=== PATIENT | female | born 1935 | race Caucasian/White ===

== ENCOUNTER 2016-10-06 15:54 | Inpatient (IN) ==
[2016-10-06 16:29] LABS: BASO% 0.2 % (0.0-0.8); EOS# 0.01 X1000 (0.0-0.7); EOS% 0.1 % (0.0-10.0); HEMATOCRIT 32.3 % (37.0-47.0); HEMOGLOBIN 11.1 g/dL (12.0-16.0); IMM GRAN# 0.23 X1000 (0.0-0.04); LYMPH# 1.39 X1000 (1.2-3.4); LYMPH% 12.2 % (20.5-51.1); MANUAL DIFF NEEDED? NO; MCH 30.2 PG (27-31); MCHC 34.4 g/dL (33-37); MONO# 2.57 X1000 (0.11-0.59); MONO% 22.5 % (1.7-9.3); MPV 9.5 FL (7.4-10.4); PLT 320 X1000 (130-400); RBC 3.67 XMIL (4.2-5.4)
[2016-10-06 16:43] LABS: CALCIUM 8.6 mg/dL (8.8-10.2); POTASSIUM 3.5 mmol/L (3.5-5.1); TOTAL BILIRUBIN 0.44 mg/dL (0.20-1.00)
[2016-10-06] MEDS ORDERED: ZOFRAN IV ONE (17:39)
[2016-10-06] MEDS ORDERED: NS 1,000 ML IV ONE (17:39)
--- NOTE | 2016-10-06 17:59 | PROVIDER DOCUMENTATION ---
This chart was entered by Jewels Freire Scribe, acting as scribe for Ramana Tucker MD. HPI-Abdominal Pain/GI Problem <Josias Almaraz - Last Filed: 10/06/16 19:18> - General Source: patient - History of Present Illness-ABD Nature of Presenting Problems: Pt is a 81 yof who came to the ED with a cc of abdominal pain. Pt reports she has been having N/V/D since . Pt reports he abdomen is bloated. Denies fever, chills, and chest pain. Abdominal Pain Onset Location: reports: generalized abdomen Pain Radiation: reports: no radiation Quality of Pain: reports: sharp Onset/Duration: reports: 5 days ago Timing: reports: still present Activities at Onset: reports: none Modifying Factors: improves with: nothing Associated Symptoms: reports: nausea, vomiting Last BM: unsure Dark Stools Present?: reports: none noticed Rectal Bleeding: reports: none Rectal Pain: reports: none Bruising or Bleeding Gums?: No Similar Symptoms Previously?: No Recently seen or treated by another doctor?: No <Ramana Tucker - Last Filed: 10/07/16 10:40> - General Chief Complaint: N/V/D Stated Complaint: POSS DEHYDRATION Time Seen by Provider: 10/06/16 16:27 Allergies/Adverse Reactions: Patient Allergies Allergy/AdvReac Type Severity Reaction Status Date / Time No Known Allergies Allergy Verified 10/06/16 18:02 Home Medications: Home Medication List Medication Instructions Recorded Confirmed Last Taken Type Atenolol [Tenormin] 50 mg PO BID 07/19/12 10/06/16 07/19/12 07:00 History Clonidine 0.1 mg PO BID 07/19/12 10/06/16 10/06/16 06:00 History Hydralazine [Apresoline] 20 mg PO TID 07/19/12 10/06/16 10/06/16 13:00 History Levothyroxine Sodium [Levoxyl] 50 mcg PO DAILY 07/19/12 10/06/16 10/06/16 06:00 History Amlodipine [Norvasc] 5 mg PO DAILY 10/06/16 10/06/16 Unknown History Aspirin [Aspir-Low] 81 mg PO DAILY 10/06/16 10/06/16 10/06/16 06:00 History Atenolol 50 mg PO BID 10/06/16 10/06/16 Unknown History Furosemide [Lasix] 20 mg PO DAILY 10/06/16 10/06/16 10/06/16 06:00 History LISINOpril [Prinivil] 20 mg PO BID 10/06/16 10/06/16 Unknown History Review of Systems - Adult - REVIEW OF SYSTEMS - ADULT Gastrointestinal: reports: diarrhea, nausea, vomiting <Josias Almaraz - Last Filed: 10/06/16 19:18> - REVIEW OF SYSTEMS - ADULT Constitutional: denies: chills, fever Eyes: reports: no symptoms reported Ears, Nose, Mouth & Throat: reports: no symptoms reported Cardiovascular: reports: no symptoms reported Respiratory: reports: no symptoms reported Gastrointestinal: reports: abdominal pain. denies: diarrhea, nausea, vomiting Genitourinary: reports: no symptoms reported Musculoskeletal: denies: bone pain, frequent leg cramps, joint swelling Integumentary: reports: no symptoms reported Neurological: reports: no symptoms reported Psychiatric: reports: no symptoms reported Endocrine: reports: no symptoms reported Hematologic/Lymphatic: reports: no symptoms reported Allergic/Immunologic: reports: no symptoms reported All Other Systems: Reviewed and Negative <Ramana Tucker - Last Filed: 10/07/16 10:40> Past History - Adult - PAST MEDICAL HISTORY-ADULT Review of Records: reports: Nursing Assessment Review Major Childhood Illnesses: reports: denies history Cardiovascular: reports: HTN, hyperlipidemia Respiratory: reports: denies history Gastrointestinal: reports: denies history Obstetrical/Gynecological: reports: denies history Genitourinary: reports: denies history Musculoskeletal: reports: denies history Neurological: reports: denies history Endocrine/Immune: reports: thyroid disorder Other Conditions: reports: denies history - IMMUNIZATION STATUS Childhood Immunizations: See Nurse Assessment Flu Vaccine: See Nurse Assessment - FAMILY HISTORY Family History: reviewed, not pertinent <Ramana Tucker - Last Filed: 10/07/16 10:40> Physical Exam-General - PHYSICAL EXAM-ADULT Initial Vital Signs Reviewed: Yes - CONSTITUTIONAL General Appearance: appears well, alert, no apparent distress - EYES Eyes: PERRL/EOMI, pink conjunctivae - HEAD, EARS, NOSE, MOUTH & THROAT HENMT: normocephalic/atraumatic, moist mucous membranes - NECK Neck: non-tender, full range of motion - RESPIRATORY Respiratory: chest non-tender, lungs clear, normal breath sounds - CARDIOVASCULAR Cardiovascular: normal peripheral pulses, regular rate, rhythm - GASTROINTESTINAL (ABDOMEN) Abdominal Exam: normal bowel sounds, distended, tenderness - MUSCULOSKELETAL Back Exam: normal inspection, no CVA tenderness Extremity: normal range of motion, non-tender - SKIN Integumentary: normal color, normal turgor - NEUROLOGIC Neurologic: grossly normal - PSYCHIATRIC Psych/Mental Status: normal mood/affect, normal thought content, normal thought process, oriented x 3 <Marquise Tuckerbrennon X - Last Filed: 10/07/16 10:40> Progress - PLAN OF CARE/RESULTS Progress/Plan/Lab Results: Vital Signs - 8 hr 10/06/16 15:56 10/06/16 18:35 Temperature 98.5 F Pulse Rate 67 Respiratory Rate 18 Blood Pressure 117/52 105/49 O2 Sat by Pulse Oximetry 100 Laboratory Results - last 24 hr 10/06/16 10/06/16 10/06/16 16:00 16:00 16:00 WBC 11.41 H RBC 3.67 L Hgb 11.1 L Hct 32.3 L MCV 88.0 MCH 30.2 MCHC 34.4 RDW Std Deviation 12.3 Plt Count 320 MPV 9.5 Immature Gran % (Auto) 2.0 H Neut % (Auto) 63.0 Lymph % (Auto) 12.2 L [place] % (Auto) 22.5 H Eos % (Auto) 0.1 Baso % (Auto) 0.2 Immature Gran # (Auto) 0.23 H Neut # (Auto) 7.19 H Lymph # (Auto) 1.39 [place] # (Auto) 2.57 H Eos # (Auto) 0.01 Baso # (Auto) 0.02 Sodium 126 L Potassium 3.5 Chloride 82 L Carbon Dioxide 26 Anion Gap 18 BUN 56 H Creatinine 2.8 H Estimated GFR/1.73 m2 16 BUN/Creatinine Ratio 20 Glucose 128 H Calculated Osmolality 270 Calcium 8.6 L Total Bilirubin 0.44 AST 24 ALT 19 Alkaline Phosphatase 86 Troponin T < 0.010 Total Protein 7.0 Albumin 3.0 L Globulin 4.0 Albumin/Globulin Ratio 0.8 Orders Category Date Time Status NG/OG/Feeding Tube Insertion ORDERED Care 10/06/16 19:10 Active Saline Loc NOW Care 10/06/16 17:39 Active CHEST-PORTABLE [RAD] Stat Exams 10/06/16 19:12 Ordered RENAL STONE SEARCH [CT] Stat Exams 10/06/16 17:48 Taken ABG [RESP] Routine Lab 10/06/16 19:11 Ordered BNP [PRO B-NATRIURETIC PEPTIDE] Stat Lab 10/06/16 16:00 Received CBC WITH ELECTRONIC DIFF [HEME] Stat Lab 10/06/16 16:00 Completed COMPREHENSIVE METABOLIC PANEL [CHEM] Stat Lab 10/06/16 16:00 Completed TROPONIN T Stat Lab 10/06/16 16:00 Completed UA Reflex [URINALYSIS W/POSS RFLX CULT] [URINALYSIS] Lab 10/06/16 15:59 Uncollected Stat 0.9% Sodium Chloride Inj [Ns] 1,000 ml Med 10/06/16 19:13 Active IV 500 mls/hr 0.9% Sodium Chloride Inj [Ns] 1,000 ml Med 10/06/16 17:39 Discontinued IV 999 mls/hr Ondansetron [Zofran] Med 10/06/16 17:39 Discontinued 8 mg IV NOW ONE Result Diagrams: 10/06/16 16:00 10/06/16 16:00 <Josias Almaraz - Last Filed: 10/06/16 19:18> - PLAN OF CARE/RESULTS Progress/Plan/Lab Results: Vital Signs - 8 hr 10/06/16 15:56 Temperature 98.5 F Pulse Rate 67 Respiratory Rate 18 Blood Pressure 117/52 O2 Sat by Pulse Oximetry 100 Laboratory Results - last 24 hr 10/06/16 10/06/16 16:00 16:00 WBC 11.41 H RBC 3.67 L Hgb 11.1 L Hct 32.3 L MCV 88.0 MCH 30.2 MCHC 34.4 RDW Std Deviation 12.3 Plt Count 320 MPV 9.5 Immature Gran % (Auto) 2.0 H Neut % (Auto) 63.0 Lymph % (Auto) 12.2 L [place] % (Auto) 22.5 H Eos % (Auto) 0.1 Baso % (Auto) 0.2 Immature Gran # (Auto) 0.23 H Neut # (Auto) 7.19 H Lymph # (Auto) 1.39 [place] # (Auto) 2.57 H Eos # (Auto) 0.01 Baso # (Auto) 0.02 Sodium 126 L Potassium 3.5 Chloride 82 L Carbon Dioxide 26 Anion Gap 18 BUN 56 H Creatinine 2.8 H Estimated GFR/1.73 m2 16 BUN/Creatinine Ratio 20 Glucose 128 H Calculated Osmolality 270 Calcium 8.6 L Total Bilirubin 0.44 AST 24 ALT 19 Alkaline Phosphatase 86 Total Protein 7.0 Albumin 3.0 L Globulin 4.0 Albumin/Globulin Ratio 0.8 Orders Category Date Time Status Saline Loc NOW Care 10/06/16 17:39 Active CBC WITH ELECTRONIC DIFF [HEME] Stat Lab 10/06/16 16:00 Completed COMPREHENSIVE METABOLIC PANEL [CHEM] Stat Lab 10/06/16 16:00 Completed UA Reflex [URINALYSIS W/POSS RFLX CULT] [URINALYSIS] Lab 10/06/16 15:59 Uncollected Stat 0.9% Sodium Chloride Inj [Ns] 1,000 ml Med 10/06/16 17:39 Active IV 999 mls/hr Ondansetron [Zofran] Med 10/06/16 17:39 Discontinued 8 mg IV NOW ONE Result Diagrams: 10/07/16 06:05 10/07/16 06:05 - CHANGE OF SHIFT REPORT (ED Provider) Report Given and Care Transferred to:: Dr. Almaraz Time of Transfer: 17:58 Items Pending: Labs <Ramana Tucker - Last Filed: 10/07/16 10:40> Departure <Josias Almaraz - Last Filed: 10/06/16 19:18> - Departure Time of Disposition Decision: 21:47 Certified Medical Emergency: Emergent - Critical Care Note This patient required my direct & personal management of CC.: No <Ramana Tucker - Last Filed: 10/07/16 10:40> - Departure DIAGNOSIS: SBO (small bowel obstruction) Disposition: ADMITTED INPATIENT 09 Condition: Stable This chart was documented by the indicated scribe, (Jewels Freire Scribe) and accurately reflects the services I performed and decisions made by me, Ramana Tucker MD, as attested by the provider's signature.
[2016-10-06] MEDS: NS 1,000 ML IV SCH ×2 (19:13→21:13)
[2016-10-06 19:51] LABS: ALLEN TEST YES; BE 5.4 mmoll (-3.0-3.0); BLOOD TYPE ARTERIAL; DRAW SITE R RADIAL; METHB 1.5 % (0.0-1.5); O2(CT) 13.2 mL/dL (15.0-23.0); PCO2(98.6) 37 mmHg (35-45); PO2(98.6) 62 mmHg (60-100); SAMPLE BLOOD; THB 10.1 g/dL (11.5-17.4)
--- NOTE | 2016-10-06 20:24 | CONSULTATION ---
DATE OF CONSULTATION: 10/06/2016 REQUESTING PHYSICIAN: Dr. Almaraz SURGEON CONSULTING: Giancarlo Fuentes MD. REASON FOR CONSULTATION: Abdominal pain and distention with abnormal CT scan. HISTORY OF PRESENT ILLNESS: An 81-year-old female who reports the onset of diarrhea 5 days ago, followed by nausea, vomiting and then some abdominal pain. The most severe symptoms were 5 days ago and since that time she has had some residual poor appetite and overall weakness. She does not feel like she is significantly improving; however, she has not had worsening pain, vomiting or diarrhea since then. She denies any blood in her bowel movements or vomit. She has not had a history of food fear or significant pain after eating over the last few weeks or months. She generally eats fairly well except for the last few days as mentioned above. PAST MEDICAL HISTORY: Hypertension. Hypothyroidism. She denies any history of heart arrhythmia. ALLERGIES: No known drug allergies. HOME MEDICINES: Clonidine. Levothyroxine. Atenolol. Hydralazine. Lisinopril. Amlodipine. Aspirin. Furosemide. PAST SURGICAL HISTORY: Cataract surgery. FAMILY HISTORY: Reviewed and noncontributory. SOCIAL HISTORY: Negative for tobacco, alcohol, or illicit drug use. REVIEW OF SYSTEMS: Ten systems reviewed and negative except as noted above. PHYSICAL EXAMINATION: Vital Signs: Temperature 98.5 degrees, pulse 67, respirations 18, blood pressure 105/49, O2 saturation 100%. General: Elderly female who looks her stated age, in no acute distress. HEENT: Normocephalic, atraumatic. Extraocular muscles intact. Pupils equal, round, reactive to light. Sclerae anicteric. Moist mucous membranes. Hearing grossly normal. Neck: Supple. No thyromegaly. CARDIOVASCULAR: Regular rate and rhythm. Respiratory: Bilateral equal breath sounds. No work of breathing. Gastrointestinal: Soft, mild distention. Mild tenderness diffusely. No rebound or guarding. No hernias or mass. She does have some bowel sounds. Extremities: No clubbing, cyanosis, or edema. Skin: Warm and dry. No rash. Musculoskeletal: Moves all extremities equally and well. LABORATORY: White blood cell count 11,000, hemoglobin 11.1, hematocrit 32, platelet count 320,000. Sodium 126. Potassium 3.5, chloride 82, BUN 56, creatinine 2.8, carbon dioxide 26, glucose 128, AST 24, ALT 19, alkaline phosphatase 86. Total bilirubin 0.44. IMAGING: I have reviewed a CT of her abdomen and pelvis. The official report is pending. There are multiple loops of dilated small bowel with some air-fluid levels and some questionable pneumatosis. I do not see any free air or abscess. There may be a transition point in her distal small bowel, although the colon also has quite a bit of fluid in it. ASSESSMENT AND PLAN: This is an 81-year-old female with abdominal pain, nausea, and diarrhea. I think likely she has had a viral gastroenteritis with dehydration. It is possible she could have had some ischemia to her intestines, but I do not think she has gangrene. She does not appear to be having an active ischemia at this time. She may have a partial small bowel obstruction. I think she needs close observation with repeat abdominal exams. We will check an ABG and a lactate level. I think an NG tube would be helpful to decompress her stomach and proximal small bowel. If she has any signs of deterioration, acidosis or worsening abdominal examination, then I think urgent exploration will be recommended and undertaken. cc: Giancarlo Fuentes MD
--- NOTE | 2016-10-06 20:44 | Diag Imaging Result Doc PS360 ---
EXAM: CHEST/ABD TUBE PLACEMENT INDICATION: sbo, pre op, acute renal failure TECHNIQUE: One view COMPARISON: 07/19/2012 FINDINGS: There is a newly placed NG tube with the tip projecting well below the diaphragm and is assumed to be in the lumen of the stomach in the expected position. There are distended loops of small bowel consistent with obstruction that were also seen on a recent CT. There is suggestion of mild right basilar scarring versus atelectasis. The lungs are grossly clear, otherwise. Cardiac silhouette is mildly prominent. IMPRESSION: Newly placed NG tube in the expected position below the diaphragm as described. Electronically signed by Gino Wan 10/06/2016 8:42 PM
[2016-10-06 22:02] LABS: RETIC% 1.98 % (0.8-2.1); RETIC-HE 25.9 PG (28.2-36.6)
[2016-10-06 22:26] LABS: FERRITIN 328 ng/mL (13-150)
[2016-10-06] MEDS ORDERED: NS 1,000 ML IV SCH (22:38)
[2016-10-06] MEDS ORDERED: MORPHINE IV PRN ×2 (22:38→22:40)
[2016-10-06] MEDS ORDERED: ZOFRAN IV PRN (22:38)
[2016-10-06] MEDS ORDERED: SODIUM CHLORIDE 0.9% INJ ONE (22:38)
[2016-10-06] MEDS ORDERED: TYLENOL PR PRN (22:38)
[2016-10-06] MEDS ORDERED: APRESOLINE IV PRN (22:38)
[2016-10-06] MEDS: LOPRESSOR IV SCH (22:41)
[2016-10-06] MEDS ORDERED: CHLORASEPTIC SPRAY MT PRN (23:01)
[2016-10-06] MEDS: PROTONIX IV SCH (23:46)
[2016-10-07 01:27] LABS: CALCIUM 7.3 mg/dL (8.8-10.2); POTASSIUM 2.9 mmol/L (3.5-5.1)
[2016-10-07] MEDS: LOPRESSOR IV SCH ×3 (04:22→22:17)
[2016-10-07] MEDS: POTASSIUM CHLORIDE 20 MEQ/SWI 20 MEQ/100 ML IVPB IV SCH ×4 (04:23→14:41)
[2016-10-07] MEDS: NS 1,000 ML IV SCH ×3 (04:23→22:20)
--- NOTE | 2016-10-07 05:31 | HISTORY AND PHYSICAL ---
REASON FOR ADMISSION: A 5-day history of nausea and 2-day history of diffuse abdominal pain. PRIMARY CARE PHYSICIAN: Fany Negrete MD. HISTORY OF PRESENT ILLNESS: Ms. Tamara Martinez is an 81-year-old lady primary with a past medical history of hypertension and chronic kidney disease who comes in today complaining of a 5-day history of progressive weakness, intermittent nausea and diffuse abdominal pain. She reports that her appetite declined for the first 48 hours and she had 1 episode of vomiting which was nonbloody coffee grounds. After 48 hours she started noticing her abdomen was getting progressively distended and she had a few loose nonbloody stools for the last 3 days. She also noticed that her urine output has declined and her urine has gotten darker. She denies any fever or chills per se. She denies any cardiorespiratory symptoms. She came in primarily because last night she developed constant lower abdominal pain which is sharp but initially cramping and intermittent. The pain was initially spontaneous but now it gets a little worse with movement. She denies any leg swelling, extremity tenderness or pain. She denies any recent use of antibiotics, travel or contact with sick persons or pets. No change in her home medications recently. On arrival to the ER she had noticeable abdominal distention. NG tube was placed and in the first 15 minutes drained 150 mL of brownish gastric content. REVIEW OF SYSTEMS: All systems negative. Positive findings per HPI. ALLERGIES: None. MEDICATIONS: She takes Norvasc 5 mg daily, aspirin 81 mg daily, Tenormin 50 mg b.i.d., clonidine 0.1 mg b.i.d., Lasix 20 mg daily, Apresoline 20 mg t.i.d., Levoxyl 50 mcg daily, Prinivil 20 mg b.i.d. FAMILY HISTORY: Notable for Bright disease and type 2 diabetes. SOCIAL HISTORY: Lives alone. Does not smoke, drink, or use illicit drugs. SURGICAL HISTORY: Only notable for cataracts, LAB WORK: 1. CT scan showed large, small bowel and gastric distention. We have pneumatosis of the small bowel. No obvious cut-off is noted. 2. White count 11,000, hemoglobin and hematocrit is 11 and 32, platelets 320,000 with 63% neutrophils and 22% monocytes. Sodium was 126, potassium 3.5, BUN is 56, creatinine 2.8, glucose 128, troponin was normal. ProBNP 2200, blood pH 7.50. PCO2 32.7, PO2 62, bicarbonate 29, lactate is 0.7. PHYSICAL EXAMINATION: VITAL SIGNS: Blood pressure 116/57, respiratory rate is 20, temperature is 98.2 degrees, pulse rate 72, 98% on room air. GENERAL: She is alert and oriented to person, place, and time with normal mood and affect. HEENT: Head is normocephalic, atraumatic. Eyes: ALIA, EOMI, she is anicteric but pale. ENT examination is grossly unremarkable but she has an NG tube in the right nares. There is no cyanosis noted. NECK: Supple. No JVD or carotid bruit. No thyromegaly. The patient has decreased skin turgor. CHEST: Clear to auscultation. Good air entry in both lung hale. CARDIOVASCULAR: First and second heart sounds heard. No gallops. There was 2/6 ejection systolic murmur heard in the left lateral sternal border. Rhythm is regular. ABDOMEN: Distended, soft with diffuse tenderness but no rebound or guarding. No mass or organomegaly appreciated. Bowel sounds are hypoactive. RECTAL EXAMINATION: Deferred at this time. EXTREMITIES: Trace edema in both lower extremities. Normal pulses with good volume in all extremities distally. No clubbing or cyanosis. SKIN: Intact. No breakdown. No erythema. MUSCULOSKELETAL EXAMINATION: Grossly normal. ASSESSMENT: 1. Large-bowel obstruction. Etiology yet to be determined. 2. Anemia. 3. Hypertension. 4. Chronic kidney disease. 5. Hyponatremia. 6. Dehydration secondary to bowel obstruction. 7. Metabolic alkalosis probably secondary to vomiting and NG tube aspiration. PLAN: 1. At this time Dr. Fuentes was initially consulted. He feels that this can be managed conservatively but will follow closely along. Etiology at this time for this bowel event is yet to be determined. The patient has not had any intra-abdominal surgery done and it is possible that this could just be some form of adynamic ileus from medication or some occult infection. 2. Hypotonic hypovolemic hyponatremia secondary to GI loss. Continue IV fluid resuscitation and electrolyte correction. Hyponatremia workup has been ordered which includes urine osmolalities and urine sodium. We will cautiously ensure that we do not overly correct her sodium as this could be multifactorial, in addition to the hypotonic hypovolemic etiology. We will treat patient symptomatically as this arises. We will do daily abdominal x-rays to document objective improvement of patient's symptoms. 3. Blood pressure will be controlled with IV metoprolol and hydralazine as needed. If patient is shown to have iron deficiency anemia, this could be worrisome for an occult gastrointestinal malignancy and this will need to be worked up. cc: Jacklyn Alegre MD
[2016-10-07 05:43] LABS: URINE CULTURE NEEDED? NO; URINE MICRO REVIEW NEEDED? NO; URINE SOURCE CLEAN CATCH
[2016-10-07 06:02] LABS: BILIRUBIN URINE NEGATIVE (NEGATIVE); BLOOD URINE NEGATIVE (NEGATIVE); COLOR YELLOW; GLUCOSE URINE NEGATIVE (NEGATIVE); LEUKOCYTES URINE NEGATIVE (NEGATIVE); NITRITE URINE NEGATIVE (NEGATIVE); PH URINE 5.5; PROTEIN URINE 30 mg/dL (NEGATIVE); SP GRAVITY URINE 1.011; TURBIDITY URINE HAZY (CLEAR); UROBILINOGEN URINE NORMAL (NORMAL)
[2016-10-07 06:04] LABS: UR EPITHELIAL CELLS <10 /HPF (<10); URINE BACTERIA NEGATIVE /HPF; URINE RBC <10 /HPF (<10); URINE WBC <10 /HPF (<10)
[2016-10-07 06:46] LABS: BASO% 0.1 % (0.0-0.8); EOS# 0.01 X1000 (0.0-0.7); EOS% 0.1 % (0.0-10.0); HEMOGLOBIN 10.4 g/dL (12.0-16.0); LYMPH# 0.89 X1000 (1.2-3.4); LYMPH% 9.1 % (20.5-51.1); MANUAL DIFF NEEDED? YES; MCH 29.5 PG (27-31); MCHC 33.5 g/dL (33-37); MCV 88.1 FL (81-99); MONO# 2.75 X1000 (0.11-0.59); MONO% 28.1 % (1.7-9.3); MPV 9.8 FL (7.4-10.4); NEUT% 61.6 % (42.2-75.2); PLT 284 X1000 (130-400); RBC 3.52 XMIL (4.2-5.4)
[2016-10-07 07:06] LABS: LYMPHS 9 % (21-51); MONO 29 % (1-9)
[2016-10-07 07:07] LABS: LARGE PLATELETS 1+
[2016-10-07 07:15] LABS: ALBUMIN 2.4 g/dL (3.5-5.0); CALCIUM 7.6 mg/dL (8.8-10.2); MAGNESIUM 1.4 mg/dL (1.5-2.7); TOTAL BILIRUBIN 0.45 mg/dL (0.20-1.00); TOTAL PROTEIN 6.1 g/dL (6.3-8.3)
--- NOTE | 2016-10-07 08:11 | Diag Imaging Result Doc PS360 ---
EXAM: RENAL STONE SEARCH HISTORY: Abd pain TECHNIQUE: CT urogram without contrast with dose reduction (clarity.) COMMENT: There is a small, and possibly slightly loculated pleural fluid collection on the right in the costophrenic sulcus. Some atelectatic or fibrotic changes are present in the posterior costophrenic sulci bilaterally. There are calcifications throughout the aorta. The stomach is distended with fluid particularly in the body and fundus. There is also fluid in the duodenum and throughout the proximal small bowel. There are granulomata in the spleen which is not enlarged. The adrenal glands are not enlarged. There is no evidence of nephrolithiasis or hydronephrosis. There is a small exophytic nodule arising from the upper pole of the left kidney which has a CT density of over 20 Hounsfield units. This was apparently cystic on the ultrasound of 03/16/2011. There is a large cyst in the right kidney measuring over 5.7 cm. There is some debris or cholesterol stones in the gallbladder which is contracted. There is fluid in the right colon. The left colon is largely collapsed. Gas is seen throughout the transverse colon. The distal ileum is normal in caliber. There is no clear transition zone to the more dilated proximal loops and there is fluid into the proximal portion of the ileum. Some gas and fecal debris is present in the rectum. There is no evidence of abdominal aortic aneurysm. Severe degenerative changes are present in the hips particularly the right hip. There is facet arthropathy particularly in the lower lumbar spine. IMPRESSION: 1. Right pleural effusion. Atelectasis versus fibrosis. 2. Apparent enterocolitis. No evidence of urolithiasis or obstructive uropathy. The possibility of a partial small bowel obstruction cannot be excluded. Electronically signed by Isaac Wallis 10/07/2016 8:09 AM
[2016-10-07] MEDS ORDERED: MAGNESIUM SULFATE 2 GM/S.W.I. 2 GM/50 ML IVPB IV ONE (08:28)
--- NOTE | 2016-10-07 08:54 | PROGRESS NOTE ---
DATE: 10/07/2016 SUBJECTIVE: The patient says she feels okay this morning. She is not currently hurting. She has no nausea or vomiting overnight and she has passed some flatus. OBJECTIVE: Vital signs: She is afebrile. Vital signs are stable. General: She is alert and oriented x3. No acute distress. GI: Minimally distended. Soft. She is still moderately tender in her mid right and left abdomen and suprapubic area. No rebound or guarding. No hernia appreciated. Respiratory: No work of breathing. CV: Regular rate and rhythm. LABORATORY: White blood cell count 9.7, hemoglobin 10.4. Sodium 137, potassium 3.0, chloride 95, CO2 25, BUN 47, creatinine 1.9, glucose 88. She has bilious and gastric fluid in her NG tube canister. I think a 1000 mL have been draining so far. ASSESSMENT AND PLAN: This is an 81-year-old female with abdominal pain, nausea, vomiting, and diarrhea for several days. She is improving slowly. I do not think she has a surgical abdomen. Review of her CT scan report today shows that she has findings consistent with enterocolitis but no obvious pneumatosis intestinalis or other surgical indication. We will continue close observation. I think she should stay NPO with NG tube to suction today and continue her hydration and electrolyte replacement. cc: Giancarlo Fuentes MD
--- NOTE | 2016-10-07 09:10 | Diag Imaging Result Doc PS360 ---
EXAM: ABDOMEN FLAT/UPRIGHT INDICATION: possible ileus TECHNIQUE: Two views COMPARISON: None. FINDINGS: There is an NG tube projecting below the diaphragm and is assumed to be in the stomach in expected position. There are multiple distended loops of small bowel consistent with known small bowel obstruction. It appears similar to the previous study. There is no evidence of large volume free abdominal gas. IMPRESSION: Multiple distended bowel loops as described that are similar to the previous study consistent with known small bowel obstruction. Electronically signed by Gino Wan 10/07/2016 9:08 AM
[2016-10-07] MEDS: HEPARIN SUBQ SCH ×2 (09:22→22:15)
[2016-10-07] MEDS ORDERED: SODIUM CHLORIDE 0.9% 10 ML ONE (14:30)
--- NOTE | 2016-10-07 16:01 | PROGRESS NOTE ---
DATE: 10/07/2016 SUBJECTIVE: Today Ms. Martinez refers to be doing a lot better. According to her, she went on a trip to [facility] and during the trip she realized that she has not been having regular bowel movements. However, 3 days ago she started having some diarrhea and abdominal discomfort, came to the emergency department yesterday and was found to have small bowel obstruction. OBJECTIVE: Vital signs: Blood pressure is 134/55, pulse of 68, respirations 18, temperature is 99 degrees. General: Ms. Martinez is an 81-year-old female. She is in bed. She is not in any distress. HEENT: Mucosa is pink and moist. Anicteric and acyanotic. Neck: Supple. Chest: Good air entry bilateral. No crepitations. No rhonchi. Cardiovascular: Regular rate and rhythm. There is occasional extrasystole beats. No murmurs. Abdomen: Soft, distended. Bowel sounds are hypoactive and there is not any hepatosplenomegaly. Extremities: No pedal edema. TOY CONSULTANT: Patient is alert and oriented x4. There is no focal neurological deficit. Under the abdominal examination, I did not see any anterior abdominal scar. LABORATORY DATA: WBC is 9.77, hemoglobin is 10.4, platelet count of 284,000. There are no bands on the peripheral smear. Sodium is 137, potassium is 3, chloride is 95, bicarb is 27, creatinine is down to 1.9. TSH is 0.81. IMAGING: A CT scan with renal protocol did show a right pleural effusion, atelectasis versus fibrosis. Apparent enterocolitis. No evidence of urolithiasis. Possibility of small bowel obstruction could not be excluded. An x-ray of the abdomen this morning shows multiple distended bowel loops similar to previous study consistent with known small bowel obstruction. ASSESSMENT: 1. Abdominal distention secondary to small-bowel obstruction. Patient is currently with nasogastric tube for gastrointestinal decompression and is being followed up by Gastroenterology and Surgery as well. 2. Hypothyroidism. Stable. We are going to continue with intravenous form of levothyroxine. 3. Acute on chronic kidney injury. We will continue with the current intravenous fluids for adequate hydration. 4. Hypokalemia, hypomagnesemia. We would replace all these. 5. Mild protein calorie malnutrition. PLAN: In general I think Ms. Michelle is stable. She is going to continue to be nothing per oral. Continue adequate hydration. We will replace other electrolyte abnormalities. Recheck on her labs for tomorrow morning and repeat an x-ray of the abdomen. Surgery is on board as well. cc: Ej Somers MD
--- NOTE | 2016-10-07 18:12 | Diag Imaging Result Doc PS360 ---
EXAM: ABDOMEN FLAT/UPRIGHT HISTORY: pain TECHNIQUE: Two views COMMENT: There is an NG tube in the stomach. There is extensive calcification in the aorta and iliac arteries without evidence of aneurysm. There is some gas in the colon but there are loops of small bowel which are markedly distended with air-fluid levels in the left upper quadrant and mid abdomen. There is apparent stool in the distal colon. No evidence organomegaly or mass is present. Compared to the previous study of this date at 0846 the configuration of the bowel loops is nearly unchanged. IMPRESSION: Ileus plus/minus partial small bowel obstruction. Possibility of pneumatosis intestinalis and small bowel loops in the pelvis cannot be excluded. Electronically signed by Isaac Wallis 10/07/2016 6:10 PM
[2016-10-07] MEDS: PROTONIX IV SCH (22:16)
[2016-10-08] MEDS: LOPRESSOR IV SCH ×4 (06:09→20:01)
[2016-10-08] MEDS: NS 1,000 ML IV SCH ×2 (06:10→16:47)
[2016-10-08 07:15] LABS: BASO% 0.2 % (0.0-0.8); EOS# 0.02 X1000 (0.0-0.7); EOS% 0.2 % (0.0-10.0); HEMATOCRIT 31.9 % (37.0-47.0); HEMOGLOBIN 10.6 g/dL (12.0-16.0); IMM GRAN# 0.22 X1000 (0.0-0.04); IMM GRAN% 1.7 % (0.0-0.5); LYMPH# 1.18 X1000 (1.2-3.4); LYMPH% 9.1 % (20.5-51.1); MANUAL DIFF NEEDED? YES; MCH 29.9 PG (27-31); MCHC 33.2 g/dL (33-37); MCV 89.9 FL (81-99); MONO# 2.43 X1000 (0.11-0.59); MONO% 18.7 % (1.7-9.3); MPV 9.4 FL (7.4-10.4); NEUT% 70.1 % (42.2-75.2); PLT 333 X1000 (130-400); RBC 3.55 XMIL (4.2-5.4)
[2016-10-08 07:37] LABS: BANDS 2 % (0-1); EOS 4 % (1-10); LYMPHS 16 % (21-51); MONO 8 % (1-9)
[2016-10-08 07:44] LABS: CALCIUM 8.3 mg/dL (8.8-10.2); MAGNESIUM 2.2 mg/dL (1.5-2.7); POTASSIUM 3.6 mmol/L (3.5-5.1)
[2016-10-08] MEDS: HEPARIN SUBQ SCH ×2 (09:07→20:05)
--- NOTE | 2016-10-08 12:03 | Diag Imaging Result Doc PS360 ---
EXAM: ABDOMEN FLAT/UPRIGHT HISTORY: sbo TECHNIQUE: Two views COMMENT: there is dense calcification the aorta which is not distended. There is an NG tube in the stomach. There are air-fluid levels in dilated distended small bowel loops as there were previously. There is still some gas in the colon. There is still some question of pneumatosis in bowel loops in the pelvis. IMPRESSION: Partial small bowel obstruction. Possible pneumatosis intestinalis. Electronically signed by Isaac Wallis 10/08/2016 12:01 PM
--- NOTE | 2016-10-08 12:59 | PROGRESS NOTE ---
DATE: 10/08/2016 SUBJECTIVE: The patient says she has some abdominal soreness but no significant pain. It has not worsened since she was admitted. No nausea or vomiting. She passed gas yesterday morning and had a small watery bowel movement last night. OBJECTIVE: She is afebrile. Vital signs were stable. NG tube with 325 mL of output. Urine output 1350.General: She is a frail elderly female, in no acute distress. She is alert and oriented x3. CV: Regular rate and rhythm. Respiratory: No work of breathing. Gastrointestinal: Soft, mild distention and tympany. Mild tenderness diffusely. No rebound or guarding. She does have a few bowel sounds. LABORATORY: White blood cell count 12.9, hemoglobin 10.6, hematocrit 31.9, platelet count 333,000. Sodium 144, potassium 3.6, chloride 103, CO2 of 22, BUN 37, creatinine 1.2, glucose 82. IMAGING: Her abdominal x-ray shows some continued air-fluid levels and dilated small bowel loops. There is some gas in her colon. There is some questionable pneumatosis intestinalis of the bowel loops in the pelvis. ASSESSMENT/PLAN: An 81-year-old female with partial small bowel obstruction. The etiology is unclear. She has some question of pneumatosis intestinalis however the patient does not have significant pain or tenderness. She is hemodynamically stable. At this point, I want to check another ABG this afternoon. It that is stable then I plan to check an ABG, flat and upright x-ray in the morning and examine her. If she is not noticeably improved on these fronts and her kidney function has continued to improve then I want to get a CT scan with IV contrast tomorrow to better elucidate the etiology or severity of her enterocolitis and or SBO. cc: Giancarlo Fuentes MD MTDD
[2016-10-08] MEDS: ZOSYN 3.375 GM/NS 3.375 GM/50 ML IVPB IV SCH ×2 (14:34→20:03)
--- NOTE | 2016-10-08 14:50 | PROGRESS NOTE ---
DATE: 10/08/2016 SUBJECTIVE: Today, Ms. Martinez refers to be doing pretty much okay, still has some abdominal discomfort, but not in a whole lot of pain. OBJECTIVE: Vital signs: Blood pressure is 160/62, pulse 81, respirations 18, and temperature is 98.7 degrees. General: Ms. Martinez is an 81-year-old female. She is in bed, not seemingly distressed. HEENT: Mucosa slightly dry, but anicteric and acyanotic. Neck: Supple. There is an NG tube in place. Chest: Good air entry bilateral. No crepitations. No rhonchi. Cardiovascular: Regular rate and rhythm. Abdomen: Distended and is mildly tender all over. Bowel sounds are slightly hypoactive. Extremities: No pedal edema. Central Nervous System: Patient is alert and oriented x4. There is no focal neurological deficit. LABORATORY DATA: WBC went up to 12.99. Hemoglobin is 10.6. Platelet count is 333,000. There are 2% bands on the peripheral smear. Chemistry is reviewed. Sodium is 144, potassium is 3.6, chloride is 103, bicarb is 22, BUN is 37, and creatinine is 1.2. IMAGING: An x-ray of the abdomen this morning shows partial small-bowel obstruction, possible pneumatosis intestinalis. ASSESSMENT: 1. Abdominal distention secondary to partial small-bowel obstruction. The patient's white cell count has slightly gone up. An x-ray continues to show partial obstruction with possible pneumatosis intestinalis. I am kind of concerned that patient might go into some form of sepsis, so I will go ahead and cover her with antibiotics for now. I discussed the case with Dr. Fuentes, the surgeon on board, and he prefers to kind of observe the patient today. He is going to do an ABG to make sure there is not any remarkable lactic acid or severe acidosis. If there is none, then he will repeat an x-ray or a possible CT scan of the abdomen with contrast tomorrow to get a better idea what is going on. If nothing seems to be improving, eventually he will do an exploratory laparoscopy. 2. Hypothyroidism. Will continue with levothyroxine. 3. Acute on chronic kidney disease. This continues to improve on IV fluids. 4. Hypokalemia, improving. 5. Mild protein calorie malnutrition noted. 6. Volume depletion. Will continue with the gentle IV hydration. So, I think, in general, Ms. Martinez seems to be stable. She has not improved, but has not shown any sign of decompensation. X-ray this morning is pretty much the same. There is some pneumatosis intestinalis. Her white cell count went up slightly and she is still having minimal abdominal discomfort. I will go ahead and cover her with antibiotics while we are pending to see if her clinical picture will resolve or she would eventually end up getting surgery. cc: Ej Somers MD
[2016-10-08 15:52] LABS: ALLEN TEST YES; BE -1.6 mmoll (-3.0-3.0); BLOOD TYPE ARTERIAL; DRAW SITE L RADIAL; METHB 1.5 % (0.0-1.5); O2(CT) 13.1 mL/dL (15.0-23.0); PCO2(98.6) 37 mmHg (35-45); PO2(98.6) 59 mmHg (60-100); SAMPLE BLOOD; SAO2 92.5 % (95.0-100.0); THB 10.3 g/dL (11.5-17.4)
[2016-10-08 15:53] LABS: MODALITY ROOM AIR
[2016-10-08] MEDS ORDERED: SODIUM CHLORIDE 0.9% 10 ML ONE (17:02)
[2016-10-09] MEDS: ZOSYN 3.375 GM/NS 3.375 GM/50 ML IVPB IV SCH ×4 (02:39→21:19)
[2016-10-09] MEDS: PROTONIX IV SCH ×3 (02:39→22:30)
[2016-10-09] MEDS: LOPRESSOR IV SCH ×4 (02:46→21:19)
[2016-10-09] MEDS: NS 1,000 ML IV SCH (03:57)
[2016-10-09 04:39] LABS: ALLEN TEST YES; BE -1.5 mmoll (-3.0-3.0); BLOOD TYPE ARTERIAL; DRAW SITE R RADIAL; METHB 1.6 % (0.0-1.5); O2(CT) 13.3 mL/dL (15.0-23.0); PCO2(98.6) 36 mmHg (35-45); PO2(98.6) 57 mmHg (60-100); SAMPLE BLOOD; SAO2 92.8 % (95.0-100.0); THB 10.5 g/dL (11.5-17.4); pH(98.6) 7.41 (7.35-7.45)
[2016-10-09 04:41] LABS: MODALITY ROOM AIR
[2016-10-09 06:58] LABS: BASO% 0.3 % (0.0-0.8); EOS# 0.01 X1000 (0.0-0.7); EOS% 0.1 % (0.0-10.0); HEMATOCRIT 31.8 % (37.0-47.0); HEMOGLOBIN 10.7 g/dL (12.0-16.0); IMM GRAN# 0.28 X1000 (0.0-0.04); IMM GRAN% 2.4 % (0.0-0.5); LYMPH# 1.55 X1000 (1.2-3.4); LYMPH% 13.1 % (20.5-51.1); MANUAL DIFF NEEDED? NO; MCH 30.3 PG (27-31); MCHC 33.6 g/dL (33-37); MCV 90.1 FL (81-99); MONO# 2.17 X1000 (0.11-0.59); MONO% 18.3 % (1.7-9.3); MPV 9.3 FL (7.4-10.4); NEUT% 65.8 % (42.2-75.2); PLT 329 X1000 (130-400); RBC 3.53 XMIL (4.2-5.4)
[2016-10-09 07:13] LABS: CALCIUM 8.3 mg/dL (8.8-10.2); POTASSIUM 3.3 mmol/L (3.5-5.1)
[2016-10-09] MEDS: HEPARIN SUBQ SCH ×2 (08:27→21:19)
[2016-10-09] MEDS ORDERED: D5 1/2 NS 1,000 ML IV SCH (08:36)
--- NOTE | 2016-10-09 09:14 | Diag Imaging Result Doc PS360 ---
EXAM: FLAT/UPRIGHT ABD/1 VIEW CHEST INDICATION: sbo TECHNIQUE: 3 views COMPARISON: Abdominal radiograph dated 10/08/2016 and chest radiograph dated 10/06/2016. FINDINGS: An NG tube is in stable position. There are persistent distended loops of small bowel that are very similar to the previous study but distention of a few of the loops may have marginally improved. There is no evidence of large volume free abdominal gas. The abdomen is essentially stable, otherwise. There has been development of a small to moderate-sized right pleural effusion with adjacent atelectasis and/or infiltrate. There is probably a trace effusion on the left as well. Cardiac silhouette is essentially stable given differences in technique. IMPRESSION: 1.Stable to marginal improvement of gaseous distention of small bowel. 2.Development of a small to moderate-sized right pleural effusion and a trace effusion on the left with adjacent atelectasis and/or infiltrate, at least on the right. Electronically signed by Gino Wan 10/09/2016 9:11 AM
--- NOTE | 2016-10-09 09:59 | Diag Imaging Result Doc PS360 ---
ABDOMEN/PELVIS W/CONTRAST - 10/09/2016 INDICATION: sbo TECHNIQUE: A CT dose reduction protocol was used. COMPARISON: 10/06/2016 FINDINGS: There is very little change in the mid-distal, very high-grade small bowel obstruction. There continues to be pneumatosis intestinalis in a pelvic bowel loop contacting the urinary bladder. No free air. There is a small amount of free fluid in the pelvis. No portal venous gas. There is a stable, very long segment of small bowel that appears diffusely inflamed with wall thickening. In the mid superior mesenteric artery, there are some multifocal plaques causing moderate to severe stenosis. See images #[id number]. The gallbladder is very contracted. There is a nasogastric tube in good position. There is a moderate right and trace left pleural effusion. No infiltrates in the lung bases. Urinary bladder, uterus, and rectum are normal. 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 There are moderately advanced degenerative changes of the spine and sacroiliac joints. IMPRESSION: 1. High-grade distal small bowel obstruction. Pneumatosis intestinalis. Long segment of abnormal bowel and vascular disease suggests bowel ischemia as etiology. 2. Contracted gallbladder, probably from prolonged nothing by mouth status. 3. Pleural effusions in the lung bases. Electronically signed by Luis Knight 10/09/2016 9:57 AM
--- NOTE | 2016-10-09 10:37 | PROGRESS NOTE ---
DATE: 10/09/2016 SUBJECTIVE: The patient says she feels okay. No significant pain. She has had a couple of solid bowel movements overnight. OBJECTIVE: She is afebrile. Vital signs are stable.General: She is alert and oriented x3. No acute distress. Respiratory: No work of breathing. GI: Soft, mildly distended and tympanic. She is mildly tender diffusely. No rebound or guarding. LABORATORY: White blood cell count 11.8, hemoglobin 10.7, sodium 148, potassium 3.3, chloride 109, CO2 21, BUN 25, creatinine 0.9, glucose 110, pH 7.4, pCO2 36, PaO2 57, bicarb 23, base deficit -1.5, lactate 0.7. IMAGING: Her abdominal x-ray this morning shows continued air-fluid levels and some dilated small bowel. There is very minimal gas in the colon. There is also a [id number] right-sided pleural effusion. An abdominal CT scan with IV contrast was also done this morning and reviewed. There is a high- grade small-bowel obstruction with pneumatosis intestinalis and vascular disease of the aorta and SMA, likely ischemic bowel etiology. ASSESSMENT/PLAN: An 81-year-old female with small-bowel obstruction and likely ischemic gut. I have recommended to her exploratory laparotomy, possible bowel resection, possible revascularization of her superior mesenteric artery. We discussed risks and benefits, including bleeding, infection, injury to surrounding organs, such as the intestines, anastomotic leak, incisional hernia, pneumonia, heart failure and .she understands and agrees to proceed. cc: Giancarlo Fuentes MD
[2016-10-09] MEDS ORDERED: AK-FLUOR ONE ×2 (11:10→12:22)
[2016-10-09 13:20] LABS: URINE MICRO REVIEW NEEDED? NO; URINE SOURCE CATH
[2016-10-09 13:24] LABS: BILIRUBIN URINE NEGATIVE (NEGATIVE); BLOOD URINE NEGATIVE (NEGATIVE); COLOR YELLOW; GLUCOSE URINE NEGATIVE (NEGATIVE); LEUKOCYTES URINE NEGATIVE (NEGATIVE); NITRITE URINE NEGATIVE (NEGATIVE); PH URINE 5.5; PROTEIN URINE TRACE mg/dL (NEGATIVE); SP GRAVITY URINE 1.028; TURBIDITY URINE CLEAR (CLEAR); UR EPITHELIAL CELLS <10 /HPF (<10); URINE BACTERIA NEGATIVE /HPF; URINE RBC <10 /HPF (<10); URINE WBC <10 /HPF (<10); UROBILINOGEN URINE NORMAL (NORMAL)
--- NOTE | 2016-10-09 13:39 | PROGRESS NOTE ---
DATE: 10/09/2016 SUBJECTIVE: Today, Ms. Martinez refers to be doing relatively the same. Has been evaluated by Surgery. A CT scan of the abdomen was also done and is consistent with a high-grade, so patient was actually about to be sent to the OR for exploratory laparotomy. OBJECTIVE: Vital signs: Blood pressure is 175/63, pulse of 75, respirations 16, temperature is 98.5 degrees. General: Ms. Martinez is an 81-year-old female. She was in bed. She did not seem to be in any distress. NG tube was in place. Chest: Clear. Cardiovascular: Regular rate and rhythm. Abdomen: Continues to be distended. Bowel sounds were hypoactive and the patient has tenderness on all the abdominal palpation. Central Nervous System: Patient was alert and oriented x4. There is no focal neurological deficit. LABORATORY DATA: WBC is 11.87, hemoglobin is 10.7, platelet count is 339,000. Chemistry is reviewed. Sodium is 148, potassium is 3.3, chloride is 109, bicarbonate is 21, and creatinine is down to 0.9. The CT scan of the abdomen and pelvis which was done early this morning shows a high-grade distal small-bowel obstruction, pneumatosis intestinalis, long segment of abnormal bowel and vascular disease suggestive of ischemic bowel as the etiology. ASSESSMENT: 1. Small-bowel obstruction with suspected ischemic bowel. The patient is going to go for exploratory laparotomy today. 2. Hypothyroidism. Will continue with the supplement. 3. Acute kidney injury, completely resolved. 4. Hypokalemia, improved. 5. Mild protein calorie malnutrition. 6. Left pleural effusion, likely from over-hydration. We will going to gradually scale back on the IV fluids. 7. Hypernatremia with hyperchloremia, I guess is due to the saline. We will therefore switch this to D5 and half saline at only 75 mL per hour. So, in general, I think Ms. Martinez is relatively stable. She is now going for exploratory laparotomy. We will review her later on today, after surgery. cc: Ej Somers MD
[2016-10-09] MEDS ORDERED: FENTANYL ONE (14:04)
[2016-10-09] MEDS ORDERED: DIPRIVAN 1% ONE (14:04)
[2016-10-09] MEDS ORDERED: QUELICIN (DOSE) ONE (14:12)
[2016-10-09] MEDS ORDERED: XYLOCAINE-MPF 2% ONE (14:12)
[2016-10-09] MEDS ORDERED: OFIRMEV 1000 MG/ISOTONIC SOLN 1,000 MG/100 ML BOTTLE ONE (14:12)
[2016-10-09] MEDS ORDERED: NORCURON ONE (14:12)
[2016-10-09] MEDS ORDERED: LR 3,000 ML ONE (14:12)
[2016-10-09] MEDS ORDERED: ROBINUL ONE (14:12)
[2016-10-09] MEDS ORDERED: NEOSTIGMINE ONE (14:12)
--- NOTE | 2016-10-09 14:38 | OPERATIVE NOTE ---
PROCEDURE DATE: 10/09/2016 PREOPERATIVE DIAGNOSES: 1. Small bowel obstruction. 2. Possible mesenteric ischemia. POSTOPERATIVE DIAGNOSES: 1. Gangrenous portion of small bowel. 2. Partial small bowel obstruction. SURGEON: Dr. Giancarlo Fuentes. ANESTHESIA: General. PROCEDURE: 1. Exploratory laparotomy with small-bowel resection and anastomosis. 2. Placement of central venous line with ultrasound guidance. ESTIMATED BLOOD LOSS: 20 mL. COMPLICATIONS: None apparent. SPECIMENS: About 80 cm of small bowel. FINDINGS: The patient had patchy necrosis of the mid jejunum for a total distance of approximately 80 cm. There was a change in caliber proximally and distally to this segment. The SMA was evaluated and had good flow in it at its takeoff and in its mid portion. COMPLICATIONS: None apparent. TECHNIQUE: The patient was brought to the operating room and placed supine on the table. General anesthesia was induced. She was prepped and draped in the usual sterile fashion. A medium midline incision was made from her upper abdomen around the umbilicus to just below the umbilicus. This was carried down through the subcutaneous tissue with the knife and through the fascia with cautery. The peritoneal cavity was entered safely. I then began the initial exploration by flipping the omentum and transverse colon up into our wound. I looked into the lower abdomen and immediately noticed some murky fluid. The omentum was also somewhat adherent down here. There was a slight odor. At this point, I went ahead and extended my incision caudally down to the symphysis pubis. I then was able to lift up this adherent wad of omentum and small bowel up out of the pelvis and into our wound. I was able to separate the omentum off the small bowel fairly easily with finger fracture technique. I immediately found obviously necrotic small bowel in the mid portion of the jejunum. There were some patchy areas of necrosis proximal and distal to the main segment. I marked the proximal and distal aspects with a 3-0 silk suture and then the patient was given fluorescein dye. A Wood's lamp was brought in. We examined the bowel and I determined that there was a total segment of about 80 cm encompassing the necrotic patchy areas. Proximally and distally to this there was excellent distribution of the fluorescein throughout the mesentery and small bowel. I then evaluated the proximal SMA trunk. There was good adequate flow in the SMA. We looked at the cecum, transverse colon, descending colon, sigmoid, and rectum. All of these areas appeared healthy. I ran the small bowel from the ligament of Treitz to the terminal ileum and again the only pathologic segment was in the mid jejunum. We then did a small- bowel resection stapling off the bowel proximally and distally with a blue linear stapler and dividing the mesentery with the LigaSure device. The specimen was passed off the field. I should point out that we did also protect our wound with a Bryan wound protector and sterile towels. I then brought the bowel in a jtzs-[id number] anti peristaltic configuration and approximated the antimesenteric border at the staple lines with a 3-0 silk pop. I did over sew the staple lines with a running 3-0 Vicryl and a couple of [id number]-[id number] 3-0 silk to get hemostasis at the staple lines so there was good blood flow at our cut end of the bowel. I then removed the corner of the antimesenteric side of each limb of small bowel with scissors and slid another 60 cm blue linear stapler into each limb and created a ljon-pf-wbei stapled anastomosis. The common enterotomy was then closed in 2 layers with a running 3-0 Vicryl and then a 2nd outer layer of a running Vicryl. The anastomosis was felt to be patent. I then closed the mesenteric defect with interrupted 3-0 silk. We then irrigated both pericolic gutters and the pelvis with warm saline and suctioned this out. There were no signs of any other injury or ongoing bleeding. The bowel was returned to its normal position. The omentum was placed over the top of it. I closed the peritoneum with a running #1 Vicryl. Several interrupted 0 Vicryl pops were used to approximate the fascia together and then the fascia was close formally with a running #1 looped Maxon suture. The skin was closed with skin clips. I then prepped the right neck and draped this area out. The internal jugular vein was found with the [employer] ultrasound. It was compressible, patent and without thrombus. It was accessed under ultrasound guidance with the needle. The wire passed through the needle into the vein. The tract was dilated. A triple-lumen central venous catheter was passed over the wire. The wire was removed. Each port miguel back blood easily and was flushed with saline. The port was anchored to the skin with silk suture and a sterile dressing was applied. There were no apparent complications. She was awakened in stable condition and transferred to the recovery room. cc: Giancarlo Fuentes MD
--- NOTE | 2016-10-09 14:46 | Diag Imaging Result Doc PS360 ---
CHEST-PORTABLE - 10/09/2016 INDICATION: s/p cvl TECHNIQUE: COMPARISON: Earlier 10/09/2016 FINDINGS: There is a new right internal jugular central line with the catheter tip at the cavoatrial junction. There has been redistribution of the right pleural effusion. No pneumothorax. Stable small left pleural effusion. There is mild cardiomegaly. Stable nasogastric tube in good position. IMPRESSION: Right central line placement. Otherwise little change from prior. No pneumothorax. Electronically signed by Luis Knight 10/09/2016 2:44 PM
[2016-10-09] MEDS ORDERED: DILAUDID IV PRN (15:18)
[2016-10-09] MEDS: LR 1,000 ML IV SCH (15:50)
[2016-10-09] MEDS: POTASSIUM CHLORIDE 20 MEQ/SWI 20 MEQ/100 ML IVPB IV SCH ×2 (15:50→18:45)
[2016-10-09] MEDS ORDERED: SODIUM CHLORIDE 0.9% 0 ML ONE (15:57)
[2016-10-09] MEDS ORDERED: BLISTEX MEDICATED BERRY LIP BALM TOP PRN (16:12)
[2016-10-09] MEDS: OFIRMEV 1000 MG/ISOTONIC SOLN 1,000 MG/100 ML BOTTLE IV SCH (23:58)
[2016-10-10] MEDS: ZOSYN 3.375 GM/NS 3.375 GM/50 ML IVPB IV SCH ×4 (02:00→20:54)
[2016-10-10] MEDS: LR 1,000 ML IV SCH (02:53)
[2016-10-10] MEDS: LOPRESSOR IV SCH ×4 (05:28→21:53)
[2016-10-10] MEDS: OFIRMEV 1000 MG/ISOTONIC SOLN 1,000 MG/100 ML BOTTLE IV SCH ×3 (05:54→20:56)
[2016-10-10 06:18] LABS: CALCIUM 7.7 mg/dL (8.8-10.2); POTASSIUM 3.5 mmol/L (3.5-5.1)
[2016-10-10 06:52] LABS: BASO% 0.3 % (0.0-0.8); EOS# 0.03 X1000 (0.0-0.7); EOS% 0.2 % (0.0-10.0); HEMATOCRIT 32.3 % (37.0-47.0); HEMOGLOBIN 10.6 g/dL (12.0-16.0); IMM GRAN# 0.24 X1000 (0.0-0.04); IMM GRAN% 1.6 % (0.0-0.5); LYMPH# 1.84 X1000 (1.2-3.4); LYMPH% 12.1 % (20.5-51.1); MANUAL DIFF NEEDED? YES; MCH 29.5 PG (27-31); MCHC 32.8 g/dL (33-37); MONO# 0.98 X1000 (0.11-0.59); MONO% 6.4 % (1.7-9.3); MPV 9.3 FL (7.4-10.4); NEUT% 79.4 % (42.2-75.2); PLT 307 X1000 (130-400); RBC 3.59 XMIL (4.2-5.4)
[2016-10-10 07:19] LABS: BANDS 14 % (0-1); LYMPHS 14 % (21-51); MONO 8 % (1-9)
[2016-10-10] MEDS ORDERED: D5W 1,000 ML IV SCH ×2 (08:53→14:51)
[2016-10-10] MEDS: HEPARIN SUBQ SCH ×2 (09:31→20:54)
--- NOTE | 2016-10-10 15:22 | PROGRESS NOTE ---
DATE: 10/10/2016 SUBJECTIVE: Today, Ms. Martinez refers to be doing a lot better. According to her, she has not had any bowel movement since the surgery yesterday. OBJECTIVE: Vital Signs: Blood pressure is 148/79, pulse of 94, respirations 22 , temperature 98.1 degrees. General: Ms. Martinez is an 81-year-old female. She is in bed, not seemingly distress. HEENT: Mucosa is pink and moist. Anicteric. Acyanotic. Neck is supple. Chest: Good air entry bilaterally. Few bibasilar crepitations. Cardiovascular: Regular rate and rhythm. Abdomen is soft. Mildly tender around the surgical area. Bowel sounds are present. 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 There is no focal neurological deficit. LABORATORY DATA: WBC went up to 15.26. Hemoglobin is 10.6, platelet count of 307,000. There is a 14% of bands on the peripheral smear. Chemistry reviewed. Sodium is 147, potassium is 3.5, chloride is 111 and creatinine is 101. CURRENT MEDICATIONS: 1. Tylenol p.r.n. 2. Total parenteral nutrition. 3. Hydralazine p.r.n. 4. Heparin 5000 q.12. 5. Metoprolol 5 mg IV p.r.n. 6. Zosyn 3.375 g q. 6. ASSESSMENT: 1. Small bowel obstruction. Suspected ischemic etiology. The patient is status post exploratory laparotomy with gangrenous portion of the small bowel resection. Today is day 1 postop. The patient is being followed also by surgery. 2. Hypothyroidism. 3. Acute kidney injury, improved. 4. Mild protein calorie malnutrition. We will start the patient on total parenteral nutrition. 5. Hypernatremia with hyperchloremia due to the fluids. This has been switched to D5. We will stop this since the patient is going to start on total parenteral nutrition. 6. Leukocytosis with bandemia. I think this is probably reactive to the current surgery; however, we have the patient on antibiotics since yesterday just to cover for any possible infection from translocation of bacteria from the GI tract to the blood stream. cc: MD SARIKA Desir
[2016-10-10] MEDS ORDERED: D10W 1,000 ML IV PRN (16:00)
[2016-10-10] MEDS ORDERED: TPN ELECTROLYTES 20 ML, MAGNESIUM SULFATE 5 MEQ, POTASSIUM CHLORIDE 25 MEQ, SODIUM PHOS... IV SCH ×8 (16:00)
[2016-10-10] MEDS ORDERED: SODIUM CHLORIDE 0.9% 10 ML ONE (16:05)
[2016-10-10] MEDS: LIPOSYN 20% 250 ML IV SCH (16:37)
[2016-10-10 17:18] LABS: CALCIUM 7.8 mg/dL (8.8-10.2); MAGNESIUM 1.5 mg/dL (1.5-2.7); POTASSIUM 3.4 mmol/L (3.5-5.1); PREALBUMIN 5.3 mg/dL (20-40)
[2016-10-10] MEDS: PROTONIX IV SCH (21:53)
[2016-10-11] MEDS: ZOSYN 3.375 GM/NS 3.375 GM/50 ML IVPB IV SCH ×4 (02:05→21:31)
[2016-10-11] MEDS: OFIRMEV 1000 MG/ISOTONIC SOLN 1,000 MG/100 ML BOTTLE IV SCH ×4 (02:06→21:32)
[2016-10-11] MEDS: LOPRESSOR IV SCH ×4 (05:03→21:51)
[2016-10-11 06:47] LABS: AGAP 11; BUN 18 mg/dL (8-22); CALCIUM 7.4 mg/dL (8.8-10.2); CHLORIDE 108 mmol/L (98-107); COSMO 294; MAGNESIUM 1.6 mg/dL (1.5-2.7); POTASSIUM 3.3 mmol/L (3.5-5.1); SODIUM 146 mmol/L (136-145); TCO2 27 mmol/L (25-35)
[2016-10-11 08:30] LABS: BASO% 0.5 % (0.0-0.8); EOS# 0.41 X1000 (0.0-0.7); EOS% 2.3 % (0.0-10.0); HEMATOCRIT 28.5 % (37.0-47.0); HEMOGLOBIN 9.3 g/dL (12.0-16.0); IMM GRAN# 0.51 X1000 (0.0-0.04); IMM GRAN% 2.9 % (0.0-0.5); LYMPH# 2.28 X1000 (1.2-3.4); MANUAL DIFF NEEDED? YES; MCHC 32.6 g/dL (33-37); MCV 91.9 FL (81-99); MONO# 0.99 X1000 (0.11-0.59); MONO% 5.6 % (1.7-9.3); MPV 9.7 FL (7.4-10.4); NEUT% 75.7 % (42.2-75.2); PLT 247 X1000 (130-400)
[2016-10-11 08:41] LABS: BANDS 2 % (0-1); EOS 2 % (1-10); HYPOCHROM 1+; LYMPHS 14 % (21-51); MONO 4 % (1-9)
[2016-10-11] MEDS: HEPARIN SUBQ SCH ×2 (08:46→21:31)
[2016-10-11 12:26] LABS: ALBUMIN 2.1 g/dL (3.5-5.0); DIRECT BILIRUBIN 0.4 mg/dL (0.00-0.20); TOTAL BILIRUBIN 0.66 mg/dL (0.20-1.00); TOTAL PROTEIN 4.9 g/dL (6.3-8.3)
--- NOTE | 2016-10-11 14:19 | PROGRESS NOTE ---
DATE: 10/11/2016 SUBJECTIVE: Today Ms. Martinez refers to be doing relatively fine. Continues to have an NG tube in place. Has not had any bowel movement yet. OBJECTIVE: Vital signs: Blood pressure is 158/62, pulse of 74, respirations 22, temperature 98.1 degrees. General: Ms. Martinez is an 81-year-old female. She is in bed, not in any distress. HEENT: Mucosa is pink and moist. Anicteric. Acyanotic. Neck: Supple. Chest: Good air entry bilaterally. No crepitations. No rhonchi. Cardiovascular: Regular rate and rhythm. Abdomen: Soft. Mildly distended. Bowel sounds are present but decreased. There is a dressing over the surgical wound. [employer]: Patient is alert and oriented x4. No focal neurological deficit. I's and O's: Patient has documented 300 urine output. NG tube has been 500 for a total. ASSESSMENT: 1. 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 The patient is status post exploratory laparotomy with small bowel resection and primary anastomosis. Today is day 2. 2. Hypothyroidism, stable. 3. Acute kidney injury, improved. 4. Leukocytosis with bandemia. I think this is likely due to the ischemic bowel. Patient is currently on antibiotics. WBC went up slightly today. We are going to do a plasma lactate early tomorrow morning and also CBC to follow up. If the white cells continue to climb we might have to involve our ID colleagues to give us some guidance on antibiotic choices. 5. Mild hyperkalemia with hyperchloremia, noted. Patient is getting dextrose water through the TPN. PLAN: So in general, Ms. Martinez is day 2 post surgery for small bowel obstruction due to ischemic mesenteric disease. She seems to be relatively stable. She continues to be NPO. NG tube is in place. We will follow up with further recommendations from surgery. Of concern is her white cell count has gone in 2 days in a row after the surgery. She is currently on Zosyn. If the trend continues to worsen we might have to involve ID. cc: Ej Somers MD
[2016-10-11] MEDS ORDERED: SODIUM CHLORIDE 0.9% 10 ML ONE (15:53)
[2016-10-11] MEDS: LIPOSYN 20% 250 ML IV SCH (16:55)
[2016-10-11] MEDS: TPN ELECTROLYTES 20 ML, MAGNESIUM SULFATE 5 MEQ, POTASSIUM CHLORIDE 25 MEQ, SODIUM PHOS... IV SCH ×8 (16:55)
[2016-10-11] MEDS: PROTONIX IV SCH (21:38)
[2016-10-12] MEDS: OFIRMEV 1000 MG/ISOTONIC SOLN 1,000 MG/100 ML BOTTLE IV SCH ×4 (02:34→21:48)
[2016-10-12] MEDS: ZOSYN 3.375 GM/NS 3.375 GM/50 ML IVPB IV SCH ×4 (02:34→21:02)
[2016-10-12] MEDS: LOPRESSOR IV SCH ×4 (05:18→21:03)
[2016-10-12 06:38] LABS: AGAP 13; BUN 16 mg/dL (8-22); CALCIUM 7.5 mg/dL (8.8-10.2); CHLORIDE 106 mmol/L (98-107); COSMO 291; MAGNESIUM 1.6 mg/dL (1.5-2.7); POTASSIUM 3.5 mmol/L (3.5-5.1); SODIUM 145 mmol/L (136-145); TCO2 26 mmol/L (25-35)
[2016-10-12 06:39] LABS: BASO% 0.2 % (0.0-0.8); EOS# 0.23 X1000 (0.0-0.7); EOS% 1.4 % (0.0-10.0); HEMATOCRIT 28.4 % (37.0-47.0); HEMOGLOBIN 9.3 g/dL (12.0-16.0); IMM GRAN# 0.45 X1000 (0.0-0.04); IMM GRAN% 2.8 % (0.0-0.5); LYMPH# 2.01 X1000 (1.2-3.4); LYMPH% 12.7 % (20.5-51.1); MANUAL DIFF NEEDED? YES; MCH 30.1 PG (27-31); MCHC 32.7 g/dL (33-37); MCV 91.9 FL (81-99); MONO# 0.83 X1000 (0.11-0.59); MONO% 5.2 % (1.7-9.3); MPV 9.3 FL (7.4-10.4); NEUT% 77.7 % (42.2-75.2); PLT 218 X1000 (130-400); RBC 3.09 XMIL (4.2-5.4)
[2016-10-12 06:59] LABS: BANDS 2 % (0-1); HYPOCHROM 1+; LYMPHS 16 % (21-51)
[2016-10-12] MEDS ORDERED: POTASSIUM PHOSPHATE 40 MMOL in NS 250 ML IV ONE (08:00)
[2016-10-12] MEDS: HEPARIN SUBQ SCH ×2 (08:32→21:03)
--- NOTE | 2016-10-12 09:52 | PROGRESS NOTE ---
DATE: 10/12/2016 SUBJECTIVE: Ms. Tamara Martinez is an 81-year-old white female who is now postoperative day 3 from a small bowel resection per Dr. Fuentes. She still has an NG tube and Crawford catheter tube in place. It has been reported that she had a bowel movement and some flatus overnight. OBJECTIVE: Vital Signs: Her heart rate is 84, blood pressure 131/104, and O2 saturation 96%. She has no work of breathing. She is afebrile on IV Zosyn. Abdomen: Her midline incision is dressed. Her abdomen is slightly distended, but not tightly so. It does not appear to be overly tender. PLAN: We will continue NG tube suction to be sure that she has activity of her bowels. Her Crawford catheter tube is still in place, and that should be removed tomorrow. As we know she has bowel function, her NG tube and peripheral nutrition can be stopped, and we will advance her diet. I do feel that her postoperative convalescence has been normal, and she is getting over her surgery. cc: Lakeshia Castorena MD
[2016-10-12] MEDS ORDERED: LASIX IV ONE (12:54)
[2016-10-12] MEDS ORDERED: MAGNESIUM SULFATE 2 GM/S.W.I. 2 GM/50 ML IVPB IV ONE (13:05)
[2016-10-12] MEDS ORDERED: SODIUM CHLORIDE 0.9% 10 ML ONE (16:10)
[2016-10-12] MEDS: TPN ELECTROLYTES 20 ML, MAGNESIUM SULFATE 5 MEQ, POTASSIUM CHLORIDE 25 MEQ, SODIUM PHOS... IV SCH ×32 (17:26→17:37)
[2016-10-12] MEDS: LIPOSYN 20% 250 ML IV SCH (17:27)
[2016-10-12] MEDS: PROTONIX IV SCH (22:40)
[2016-10-13] MEDS: ZOSYN 3.375 GM/NS 3.375 GM/50 ML IVPB IV SCH ×4 (02:16→21:08)
[2016-10-13] MEDS: OFIRMEV 1000 MG/ISOTONIC SOLN 1,000 MG/100 ML BOTTLE IV SCH ×4 (02:49→21:11)
[2016-10-13] MEDS: LOPRESSOR IV SCH ×4 (04:52→21:10)
--- NOTE | 2016-10-13 05:23 | PROGRESS NOTE ---
DATE: 10/12/2016 SUBJECTIVE: The patient is resting comfortably in bed. She does complain of a sore throat. OBJECTIVE: Vital signs: Temperature 98.6. Blood pressure 161/86, heart rate 85, respirations 14. 02 saturation is 96% on nasal cannula. This is an elderly female lying in bed in no acute distress. Head: Normocephalic, atraumatic. Heart: S1, S2. Lungs: Equal air entry bilaterally without crackles or rales. Abdomen: + bowel sounds, NT, ND: Extremities: 2+ edema lower extremities. Neuro: The patient is alert and oriented x3. LABORATORY DATA: White blood cell count 15, hemoglobin 9.3, hematocrit 28, platelets 218, sodium 145, potassium 3.5, chloride 106, CO2 26, BUN 16, creatinine 0.7, glucose 116, phosphorus 2.1, magnesium 1.6. ASSESSMENT AND PLAN: 1. Status post exploratory laparotomy with small bowel resection and anastomosis secondary to small bowel obstruction and possible mesenteric ischemia. Continue with the total parenteral nutrition. Further management per the general surgeon. 2. Volume overload. Give the patient a dose of Lasix today. 3. Hypophosphatemia. We will replace the patient's phosphorus. 4. Hypomagnesemia. We will replace the patient's magnesium. 5. Hypothyroidism. We will restart the patient on Synthroid intravenously. 6. Deep vein thrombosis prophylaxis. Continue on heparin. cc: Sierra Kaur MD MTDRodrigue
[2016-10-13 06:25] LABS: BASO% 0.2 % (0.0-0.8); EOS# 0.27 X1000 (0.0-0.7); EOS% 1.9 % (0.0-10.0); HEMATOCRIT 28.6 % (37.0-47.0); HEMOGLOBIN 9.3 g/dL (12.0-16.0); IMM GRAN# 0.32 X1000 (0.0-0.04); IMM GRAN% 2.3 % (0.0-0.5); LYMPH# 2.07 X1000 (1.2-3.4); LYMPH% 14.8 % (20.5-51.1); MANUAL DIFF NEEDED? YES; MCH 29.8 PG (27-31); MCHC 32.5 g/dL (33-37); MCV 91.7 FL (81-99); MONO# 0.91 X1000 (0.11-0.59); MONO% 6.5 % (1.7-9.3); NEUT% 74.3 % (42.2-75.2); PLT 235 X1000 (130-400); RBC 3.12 XMIL (4.2-5.4)
[2016-10-13] MEDS: SYNTHROID IV SCH (06:26)
[2016-10-13 06:44] LABS: AGAP 14; BUN 21 mg/dL (8-22); CALCIUM 7.8 mg/dL (8.8-10.2); CHLORIDE 102 mmol/L (98-107); COSMO 291; POTASSIUM 3.9 mmol/L (3.5-5.1); SODIUM 144 mmol/L (136-145); TCO2 28 mmol/L (25-35)
[2016-10-13 06:52] LABS: BANDS 4 % (0-1); HYPOCHROM 1+; LYMPHS 4 % (21-51); MONO 2 % (1-9)
[2016-10-13] MEDS ORDERED: SODIUM CHLORIDE 0.9% INJ PRN (07:00)
--- NOTE | 2016-10-13 07:21 | Diag Imaging Result Doc PS360 ---
EXAM: CHEST-PORTABLE HISTORY: dyspnea TECHNIQUE: Erect AP portable chest at 0535 there is a pleural effusion on the right and a smaller effusion on the left. The fluid has shifted to on the right to the lower portion of the hemithorax compared to the previous study of 10/09/2016. Otherwise has been no appreciable change. COMMENT: Pleural effusions greater on the right than the left. IMPRESSION: Electronically signed by Isaac Wallis 10/13/2016 7:18 AM
[2016-10-13] MEDS ORDERED: LASIX IV ONE (07:49)
[2016-10-13] MEDS: HEPARIN SUBQ SCH ×2 (08:59→21:10)
--- NOTE | 2016-10-13 14:57 | PROGRESS NOTE ---
DATE: 10/13/2016 SUBJECTIVE: The patient denies any significant pain, nausea, or vomiting. She has had several bowel movements. Her NG tube fell out. OBJECTIVE: Vital Signs: She is afebrile. Vital signs are stable. General: She is alert and oriented x4. In no acute distress. Cardiovascular: Regular rate and rhythm. Respiratory: No work of breathing. Gastrointestinal: Soft, nondistended. Mild appropriate tenderness to palpation. Incision is clean, dry, and intact. She does have bowel sounds. LABORATORY: White blood cell count 13.9, hemoglobin 9.3, hematocrit 28, platelet count 235,000. BUN 21, creatinine 0.8, potassium 3.9. IMAGING: A chest x-ray today shows a pleural effusion on the right, which is greater than the one on the left. ASSESSMENT AND PLAN: An 81-year-old female, status post small-bowel resection for mesenteric ischemia. She appears to be healing appropriately. We will continue the Zosyn a few more days until her white blood cell count resolves. I will start her on a clear liquid diet today. She should continue with therapy and we are looking into rehabilitation placement at discharge. Also, continue TPN until she is tolerating good p.o. cc: Giancarlo Fuentes MD
--- NOTE | 2016-10-13 15:56 | PROGRESS NOTE ---
DATE: 10/13/2016 SUBJECTIVE: The patient is resting comfortably in bed. She states that the swelling in her lower extremities is slightly improved after receiving Lasix yesterday. OBJECTIVE: Vital Signs: Temperature 98.5 degrees, blood pressure 175/80, heart rate 99, respirations 23, O2 saturations 100% on 2 L nasal cannula. General: This is an elderly female, lying in bed, in no acute distress. Head: Normocephalic, atraumatic. Heart: S1, S2. Normal. Regular rate and rhythm. Lungs: Clear to auscultation bilaterally. Abdomen: Positive bowel sounds. Soft, nontender, nondistended. Extremities: +1 edema. No cyanosis. No calf tenderness. Neurologic: The patient is alert oriented x3. LABORATORY: White blood cell count 13, hemoglobin 9.3, hematocrit 28, platelets 235,000. Sodium 144, potassium 3.9 chloride 102, CO2 28, BUN 21, creatinine 0.8 glucose 111. ASSESSMENT AND PLAN: 1. Status post exploratory laparotomy with small-bowel resection and anastomosis. Management as per the general surgeon. 2. Hypertension. We will continue on IV metoprolol and transition to p.o. medication for better blood pressure control. 3. Hypothyroidism. Continue on Synthroid. 4. Continue with physical therapy. 5. Deep vein thrombosis prophylaxis. Continue on heparin. 6. Disposition. The patient will be discharged to rehab once cleared by the general surgeon. cc: Sierra Kaur MD
[2016-10-13] MEDS: LIPOSYN 20% 250 ML IV SCH (16:21)
[2016-10-13] MEDS: TPN ELECTROLYTES 20 ML, MAGNESIUM SULFATE 5 MEQ, POTASSIUM CHLORIDE 25 MEQ, SODIUM PHOS... IV SCH ×8 (16:21)
[2016-10-13] MEDS: PROTONIX IV SCH (21:10)
[2016-10-14] MEDS: PROTONIX IV SCH ×2 (03:00→20:50)
[2016-10-14] MEDS: ZOSYN 3.375 GM/NS 3.375 GM/50 ML IVPB IV SCH ×4 (05:04→21:20)
[2016-10-14] MEDS: LOPRESSOR IV SCH (05:04)
[2016-10-14] MEDS: OFIRMEV 1000 MG/ISOTONIC SOLN 1,000 MG/100 ML BOTTLE IV SCH ×5 (05:04→20:51)
[2016-10-14 06:40] LABS: MANUAL DIFF NEEDED? NO
[2016-10-14] MEDS: SYNTHROID IV SCH (06:44)
[2016-10-14 06:57] LABS: BASO% 0.2 % (0.0-0.8); EOS# 0.14 X1000 (0.0-0.7); HEMATOCRIT 26.6 % (37.0-47.0); HEMOGLOBIN 8.5 g/dL (12.0-16.0); IMM GRAN% 1.4 % (0.0-0.5); LYMPH# 1.46 X1000 (1.2-3.4); LYMPH% 10.2 % (20.5-51.1); MCH 29.6 PG (27-31); MCV 92.7 FL (81-99); MONO# 0.95 X1000 (0.11-0.59); MONO% 6.6 % (1.7-9.3); MPV 10.2 FL (7.4-10.4); NEUT% 80.6 % (42.2-75.2); PLT 238 X1000 (130-400); RBC 2.87 XMIL (4.2-5.4)
[2016-10-14 07:06] LABS: AGAP 14; BUN 20 mg/dL (8-22); CALCIUM 7.8 mg/dL (8.8-10.2); CHLORIDE 100 mmol/L (98-107); COSMO 285; MAGNESIUM 1.8 mg/dL (1.5-2.7); SODIUM 141 mmol/L (136-145); TCO2 27 mmol/L (25-35)
[2016-10-14] MEDS: COREG PO SCH ×3 (12:00→20:50)
[2016-10-14] MEDS: HEPARIN SUBQ SCH ×2 (12:01→20:50)
[2016-10-14] MEDS: NEUTRA-PHOS PO SCH ×3 (12:20→18:18)
--- NOTE | 2016-10-14 13:30 | PROGRESS NOTE ---
DATE: 10/14/2016 SUBJECTIVE: The patient denies any pain or nausea and vomiting, today. However. She did have an episode of nausea and vomiting last night. She had a bowel movement yesterday evening but none today and no flatus today. OBJECTIVE: Vital signs: She is afebrile. Pulse is 107 today. Blood pressure 160s-170s systolic. Respiratory rate 19 to 20. General: She is alert and oriented x4. No acute distress. Cardiovascular: Regular rate and rhythm. Respiratory: No work of breathing. Gastrointestinal: Soft, nondistended. Minimally tender. Incision clean, dry, and intact. She does have a few bowel sounds. LABORATORY: White blood cell count 14.3, hemoglobin 8.5, hematocrit 26.6, electrolytes were reviewed and unremarkable other than phosphorus of 2.5. ASSESSMENT/PLAN: An 81-year-old female status post small bowel resection for mesenteric ischemia and necrosis of the bowel. She is having slow return of bowel function. We will continue TPN and liquid diet for now. Her white count cell count is still elevated. We will continue Zosyn. She is receiving a phosphorus supplement daily. cc: Giancarlo Fuentes MD
--- NOTE | 2016-10-14 14:21 | PROGRESS NOTE ---
DATE: 10/14/2016 SUBJECTIVE: The patient is resting comfortably in bed. She was able to tolerate a clear liquid diet. She is having liquid stools. OBJECTIVE: Vital Signs: Temperature 98.3 degrees, blood pressure 176/82, heart rate 107, respirations 20, O2 saturations 96% on room air. General: This is a chronically ill-appearing, elderly female, lying in bed, in no acute distress. Head: Normocephalic, atraumatic. Heart: S1, S2. Normal. Regular rate and rhythm. Lungs: Clear to auscultation bilaterally. No wheezes, no rales. No rhonchi. Abdomen: Positive bowel sounds. Soft, nontender, nondistended. Extremities: Trace pedal edema. No cyanosis. No calf tenderness. Neurologic: The patient is alert and oriented x3. LABORATORY: White blood cell count 14, hemoglobin 8.5, hematocrit 26, platelets 238,000. Sodium 141, potassium 4, chloride 100, CO2 27, BUN 20, creatinine 0.7, glucose 116, phosphorus 2.5. ASSESSMENT AND PLAN: 1. Status post exploratory laparotomy with small-bowel resection and anastomosis. Management as per the general surgeon. 2. Hypophosphatemia. Patient is on Neutra-Phos. 3. Hypertension. We will start the patient on Coreg. 4. Hypothyroidism. Continue on Synthroid. 5. Deep vein thrombosis prophylaxis. Continue on heparin. 6. Continue with physical therapy. 7. Disposition. The patient will be discharged to rehab once cleared by the general surgeon. cc: Sierra Kaur MD
[2016-10-14] MEDS: LIPOSYN 20% 250 ML IV SCH (17:46)
[2016-10-14] MEDS: TPN ELECTROLYTES 20 ML, MAGNESIUM SULFATE 5 MEQ, POTASSIUM CHLORIDE 25 MEQ, SODIUM PHOS... IV SCH ×8 (18:30)
[2016-10-15] MEDS: PROTONIX IV SCH ×2 (01:04→21:02)
[2016-10-15] MEDS: ZOSYN 3.375 GM/NS 3.375 GM/50 ML IVPB IV SCH ×3 (05:40→17:00)
[2016-10-15] MEDS: OFIRMEV 1000 MG/ISOTONIC SOLN 1,000 MG/100 ML BOTTLE IV SCH (05:40)
[2016-10-15 06:00] LABS: MANUAL DIFF NEEDED? NO
[2016-10-15 06:17] LABS: BASO% 0.2 % (0.0-0.8); EOS# 0.12 X1000 (0.0-0.7); EOS% 1.1 % (0.0-10.0); HEMOGLOBIN 8.3 g/dL (12.0-16.0); IMM GRAN# 0.15 X1000 (0.0-0.04); IMM GRAN% 1.3 % (0.0-0.5); LYMPH# 1.34 X1000 (1.2-3.4); LYMPH% 11.7 % (20.5-51.1); MCH 30.1 PG (27-31); MCHC 31.9 g/dL (33-37); MCV 94.2 FL (81-99); MONO# 1.05 X1000 (0.11-0.59); MONO% 9.2 % (1.7-9.3); MPV 10.4 FL (7.4-10.4); NEUT% 76.5 % (42.2-75.2); PLT 285 X1000 (130-400); RBC 2.76 XMIL (4.2-5.4)
[2016-10-15 06:39] LABS: ALBUMIN 2.4 g/dL (3.5-5.0); DIRECT BILIRUBIN 0.2 mg/dL (0.00-0.20); TOTAL BILIRUBIN 0.34 mg/dL (0.20-1.00); TOTAL PROTEIN 5.9 g/dL (6.3-8.3)
[2016-10-15] MEDS: SYNTHROID IV SCH (06:48)
[2016-10-15] MEDS ORDERED: LASIX IV ONE (09:38)
[2016-10-15] MEDS ORDERED: PRINIVIL PO ONE (09:39)
[2016-10-15 10:04] LABS: AGAP 11; ALBUMIN 2.2 g/dL (3.5-5.0); BUN 21 mg/dL (8-22); CALCIUM 7.9 mg/dL (8.8-10.2); CHLORIDE 102 mmol/L (98-107); COSMO 283; POTASSIUM 4.5 mmol/L (3.5-5.1); SODIUM 140 mmol/L (136-145); TCO2 27 mmol/L (25-35)
[2016-10-15] MEDS: COREG PO SCH ×2 (10:43→21:02)
[2016-10-15] MEDS: HEPARIN SUBQ SCH ×2 (10:43→21:02)
[2016-10-15] MEDS: NEUTRA-PHOS PO SCH (10:44)
[2016-10-15 10:55] LABS: AGAP 13; BUN 21 mg/dL (8-22); CALCIUM 7.9 mg/dL (8.8-10.2); CHLORIDE 101 mmol/L (98-107); COSMO 283; GOT 57 U/L (10-30); MAGNESIUM 1.7 mg/dL (1.5-2.7); POTASSIUM 4.4 mmol/L (3.5-5.1); PREALBUMIN 21.4 mg/dL (20-40); SODIUM 140 mmol/L (136-145); TCO2 26 mmol/L (25-35); TRIGLYCERIDES 209 mg/dL (35-135)
--- NOTE | 2016-10-15 11:43 | PROGRESS NOTE ---
DATE: 10/15/2016 SUBJECTIVE: The patient denies any nausea and vomiting yesterday or this morning. She is tolerating liquids. She is having some bowel movements. She is walking a little more. OBJECTIVE: Vital Signs: She is afebrile. Vital signs are stable. General: She is alert and oriented x4. No acute distress. CV: Regular rate and rhythm. Respiratory: No work of breathing. GI: Soft, nontender, nondistended. Incision is clean, dry, and intact. ASSESSMENT/PLAN: An 81-year-old female status post small bowel resection for ischemic and gangrenous small bowel. She is making progress now. We will wean her off the total parenteral nutrition today and start her on a soft diet. We are planning a transfer to rehab tomorrow. cc: Giancarlo Fuentes MD
[2016-10-15] MEDS ORDERED: NS IV ONE (12:00)
[2016-10-15] MEDS ORDERED: SODIUM PHOSPHATE IV ONE (12:00)
--- NOTE | 2016-10-15 12:17 | PROGRESS NOTE ---
DATE: 10/15/2016 SUBJECTIVE: The patient is sitting up in a chair. She does have some swelling in her feet. Otherwise, she has no other complaints. OBJECTIVE: Vital Signs: Temperature 98 degrees, blood pressure 161/71, heart rate 87, respirations 18, O2 saturations 97% on room air. General: This is an elderly female sitting in a chair in no acute distress. Head: Normocephalic, atraumatic. Heart: S1, S2. Normal. Regular rate and rhythm. Lungs: Clear to auscultation bilaterally. No wheezes, no rales. No rhonchi. Abdomen: Positive bowel sounds. Soft, nontender, nondistended. Extremities: 2+ edema. Neurologic: The patient is alert and oriented x3. LABS: Phosphorus 2.5. White blood cell count 11, hemoglobin 8.3, hematocrit 26, platelets 285. Sodium 140, potassium 4.5, BUN 21, creatinine 0.7, glucose 113, albumin 2.2. ASSESSMENT AND PLAN: 1. Exploratory laparotomy with small-bowel resection and anastomosis. Management as per the general surgeon. 2. Hypophosphatemia. We will give the patient a dose of sodium phosphate today. 3. Hypertension. Continue on the current antihypertensive regimen. 4. Hypothyroidism. Continue on Synthroid. 5. Peripheral edema. Will give the patient a dose of intravenous Lasix today. 6. Deep vein thrombosis prophylaxis. Continue on heparin. 7. Continue with physical therapy. DISPOSITION: The patient will most likely be discharged to rehab tomorrow. cc: Sierra Kaur MD
[2016-10-15] MEDS: APRESOLINE PO SCH ×2 (14:15→17:41)
[2016-10-15] MEDS: TPN ELECTROLYTES 20 ML, MAGNESIUM SULFATE 5 MEQ, POTASSIUM CHLORIDE 25 MEQ, SODIUM PHOS... IV SCH ×8 (19:12)
[2016-10-15] MEDS: PRINIVIL PO SCH (21:02)
[2016-10-16] MEDS: ZOSYN 3.375 GM/NS 3.375 GM/50 ML IVPB IV SCH ×4 (01:20→20:27)
[2016-10-16] MEDS: PROTONIX IV SCH ×2 (01:20→21:54)
[2016-10-16 07:33] LABS: MANUAL DIFF NEEDED? NO
[2016-10-16 07:48] LABS: BASO% 0.3 % (0.0-0.8); EOS% 1.9 % (0.0-10.0); HEMATOCRIT 23.1 % (37.0-47.0); HEMOGLOBIN 7.3 g/dL (12.0-16.0); IMM GRAN# 0.08 X1000 (0.0-0.04); IMM GRAN% 0.7 % (0.0-0.5); LYMPH# 1.35 X1000 (1.2-3.4); LYMPH% 12.5 % (20.5-51.1); MCH 29.6 PG (27-31); MCHC 31.6 g/dL (33-37); MCV 93.5 FL (81-99); MONO# 1.02 X1000 (0.11-0.59); MONO% 9.5 % (1.7-9.3); MPV 10.2 FL (7.4-10.4); NEUT% 75.1 % (42.2-75.2); PLT 393 X1000 (130-400); RBC 2.47 XMIL (4.2-5.4)
[2016-10-16 08:04] LABS: AGAP 10; ALBUMIN 2.3 g/dL (3.5-5.0); BUN 19 mg/dL (8-22); CALCIUM 7.6 mg/dL (8.8-10.2); CHLORIDE 100 mmol/L (98-107); COSMO 278; SODIUM 138 mmol/L (136-145); TCO2 28 mmol/L (25-35)
--- NOTE | 2016-10-16 08:49 | PROGRESS NOTE ---
DATE: 10/16/2016 SUBJECTIVE: The patient denies any abdominal pain, nausea, or vomiting. She is tolerating a soft diet and stooling regularly. OBJECTIVE: Vital Signs: She is afebrile. Vital signs are stable. General: She is alert and oriented x4. No acute distress. CV: Regular rate and rhythm. Respiratory: No work of breathing. GI: Soft, nontender, nondistended. Incision clean, dry, and intact. ASSESSMENT AND PLAN: This is an 81-year-old female, postop day 8 of small-bowel resection for ischemic bowel. She is making a good recovery. At this point, and she is stable to be discharged to rehab. Instructions were given to her to do light activity. She can eat a regular diet as tolerated. She should follow up with me in 2-3 weeks for a postoperative check and the karla can be removed next Wednesday, October 20. cc: Giancarlo Fuentes MD
[2016-10-16] MEDS ORDERED: NS 500 ML ONE (09:10)
[2016-10-16] MEDS: COREG PO SCH ×2 (09:29→20:31)
[2016-10-16] MEDS: SYNTHROID PO SCH (09:29)
[2016-10-16] MEDS: PRINIVIL PO SCH ×2 (09:30→20:31)
[2016-10-16] MEDS: APRESOLINE PO SCH ×3 (09:30→20:31)
[2016-10-16] MEDS: HEPARIN SUBQ SCH ×2 (09:31→20:34)
--- NOTE | 2016-10-16 10:00 | DISCHARGE SUMMARY ---
ADMISSION DATE: 10/06/2016 DISCHARGE DATE: CONSULTATIONS: Giancarlo Fuentes MD with General Surgery. PERTINENT PROCEDURES: 1. Abdomen and pelvis CT showed high-grade distal small-bowel obstruction. Pneumatosis interstitial. Long segment of abnormal bowel and vascular disease suggest bowel ischemia. Contracted gallbladder secondary to NPO. Pleural effusions in the lung bases. 2. Exploratory laparotomy with small-bowel resection and anastomosis with placement of a central line for gangrenous portion of small bowel and partial small-bowel obstruction, performed by Dr. Giancarlo Fuentes. DISCHARGE DIAGNOSES: 1. Exploratory laparotomy with small-bowel resection and anastomosis. 2. Hypophosphatemia 3. Hypertension. 4. Hypothyroidism. 5. Peripheral edema 7. Acute kidney injury HOSPITAL COURSE: Briefly, Ms. Martinez is an 81-year-old female who carries a past medical history of hypertension and chronic kidney disease. Came to the ED with a 5-day history of progressive weakness, intermittent nausea with diffuse abdominal pain. She reported a decline in her appetite for the first 48 hours, then she had 1 episode of vomiting which was nonbloody coffee grounds. After 48 hour, she notice her abdomen getting progressively distended. She had a few loose nonbloody stools for the last 3 days prior to her admission. She noticed her urine output had began to decline and her urine had gotten darker. She had a CT scan done in the ED, that showed large and small bowel and gastric distention, pneumatosis of the small bowel. No obvious cut-off was noted. A white count of 11. The patient was admitted with a surgical consult. An NG tube was placed. The patient was made n.p.o. She was started on IV fluid resuscitation for her dehydration as well as electrolyte correction. A followup abdomen and CT showed a high-grade distal small-bowel obstruction with pneumonitis that suggested bowel ischemia. The patient, on 10/09/2016, underwent an exploratory lap with small-bowel resection and anastomosis for gangrenous portion of the small bowel, as well as partial small-bowel obstruction by Dr. Fuentes. The patient had been on IV antibiotics. The patient remained NPO for several days. She was started on TPN. She also had some physical deconditioning. financial services counselor along with Physical Therapy was consulted. The patient was weaned off her TPN. She was started on a GI soft diet for which she has tolerated well. The patient is having bowel movements. She has not had any nausea or vomiting. The patient has been released from a surgical standpoint to go to rehab. Hemodynamically, she is stable. VITAL SIGNS: At time of her discharge, temperature is 98.3 degrees, heart rate 90, respirations 20, blood pressure 178/71, O2 is 96% on room air. DISCHARGE MEDICATIONS: As per Dr. Kaur. Please see MAR. FOLLOWUP: The patient is being discharged to rehab. She will follow up with Dr. Giancarlo Fuentes in 2- 3 weeks. Her sutures will come out in 10 days, on October 20. DIET: She will continue a regular diet as tolerated. DISCHARGE INSTRUCTIONS: Patient can return to the ED for any worsening of symptoms. Dictated by MICHAEL Enamorado for Sierra Kaur MD cc: Sierra Kaur MD MTD
[2016-10-16] MEDS ORDERED: LASIX IV ONE (13:15)
--- NOTE | 2016-10-16 13:39 | EKG Report ---
Test Performed on : 10/16/2016 1:19:22 PM Test Reason : tachycardia Blood Pressure : / mmHG Vent. Rate : 098 BPM Atrial Rate : 098 BPM P-R Int : 116 ms QRS Dur : 074 ms QT Int : 348 ms P-R-T Axes : 021 -44 067 degrees QTc Int : 444 ms Normal sinus rhythm. Left axis deviation Inferior infarct , age undetermined Possible Anterior infarct , age undetermined Abnormal ECG When compared with ECG of 19-JUL-2012 15:12, Significant changes have occurred Confirmed by Sarmad HILL, Jose Lizarraga ([id number]) on 10/17/2016 1:17:23 PM
--- NOTE | 2016-10-16 13:40 | Diag Imaging Result Doc PS360 ---
CHEST-PORTABLE - 10/16/2016 INDICATION: dyspnea TECHNIQUE: COMPARISON: 10/13/2016 FINDINGS: The right internal jugular central line has been removed. Stable small to moderate right basilar pleural effusion with some possible adjacent infiltrate. No new infiltrates. The left lung is more clear today. Heart size remains top normal. IMPRESSION: Improved aeration of the left lower lobe. Stable right basilar effusion and possible adjacent infiltrate. No new abnormalities. Electronically signed by Luis Knight 10/16/2016 1:38 PM
[2016-10-16 14:22] LABS: ALBUMIN 2.6 g/dL (3.5-5.0); POTASSIUM 3.9 mmol/L (3.5-5.1); TOTAL BILIRUBIN 0.42 mg/dL (0.20-1.00); TOTAL PROTEIN 6.3 g/dL (6.3-8.3)
[2016-10-16] MEDS ORDERED: LEVAQUIN PO SCH (17:00)
[2016-10-16] MEDS: TPN ELECTROLYTES 20 ML, MAGNESIUM SULFATE 5 MEQ, POTASSIUM CHLORIDE 25 MEQ, SODIUM PHOS... IV SCH ×8 (17:01)
--- NOTE | 2016-10-16 17:07 | PROGRESS NOTE ---
DATE: 10/16/2016 SUBJECTIVE: The patient was noted to be dizzy and short of breath after her central line was removed once the blood transfusion was complete. The patient's O2 saturations were taken and noted to be 88% on room air. OBJECTIVE: Vital signs: Temperature 97.6 degrees, blood pressure 164/74, heart rate 80, respirations 20, O2 saturations 99% on 2 L nasal cannula. General: This is an elderly female lying in bed in no acute distress. Head: Normocephalic, atraumatic. Heart: S1, S2. Normal. Regular rate and rhythm. Lungs: Clear to auscultation bilaterally. No crackles. No rales. Abdomen: Positive bowel sounds. Soft, nontender, nondistended. Extremities: +1 edema. No cyanosis. No calf tenderness. Neurologic: The patient is alert and oriented x3. LABS: White blood cell count 10, hemoglobin 7.3, hematocrit 23, platelets 393,000. Sodium 135, potassium 3.9, chloride 97, CO2 26, BUN 19, creatinine 0.9, glucose 103, AST 44, ALT 45, alkaline phosphatase 437. Chest x-ray shows a stable right basilar effusion. ASSESSMENT AND PLAN: 1. Hypoxia. The chest x-ray shows a possible right lung infiltrate. Will order a CT of the chest to further assess this. Will place the patient on supplemental oxygen and start bronchodilator therapy. Will also continue with incentive spirometry. Will also place the patient on Levaquin. 2. Exploratory laparotomy with small-bowel resection and anastomosis. Stable. The patient will follow up with Dr. Fuentes in 2-3 weeks. 3. Hypertension. Continue on the current antihypertensive regimen. 4. Hypothyroidism. Continue on Synthroid. 5. Peripheral edema. Continue on Lasix. 6. Deep vein thrombosis prophylaxis. Continue on heparin. 7. Disposition. If the patient does well overnight she can be discharged to rehab on Wednesday. cc: Sierra Kaur MD
--- NOTE | 2016-10-16 18:13 | Diag Imaging Result Doc PS360 ---
EXAM: CT THORAX W/O CONTRAST INDICATION: pneumonia COMPARISON: None. FINDINGS: There is a moderate to large size right pleural effusion and a small left effusion. There is associated adjacent atelectasis at the lower lobes, much more prominent on the right. There is a calcified granuloma in the right middle lobe. There are a few scattered punctate noncalcified nodules that measure less than 4 mm. Statistically, these likely represent small noncalcified granulomata. There is mild biapical scarring. The lungs are grossly clear, otherwise. There are calcified mediastinal and hilar lymph nodes indicating prior granulomatous disease. The heart is perhaps mildly prominent. There is aortic and coronary artery atherosclerotic calcification. IMPRESSION: 1.Moderate to large sized right pleural effusion and small left effusion with adjacent atelectasis as described. 2.Other incidental/nonacute findings detailed above. Electronically signed by Gino Wan 10/16/2016 6:10 PM
[2016-10-16 18:23] LABS: ALLEN TEST YES; BE 5.4 mmoll (-3.0-3.0); BLOOD TYPE ARTERIAL; DRAW SITE R RADIAL; METHB 1.4 % (0.0-1.5); O2(CT) 12.8 mL/dL (15.0-23.0); PCO2(98.6) 36 mmHg (35-45); PO2(98.6) 59 mmHg (60-100); SAMPLE BLOOD; SAO2 95.4 % (95.0-100.0); THB 9.8 g/dL (11.5-17.4); pH(98.6) 7.51 (7.35-7.45)
[2016-10-16 18:25] LABS: MODALITY ROOM AIR
[2016-10-17] MEDS: ZOSYN 3.375 GM/NS 3.375 GM/50 ML IVPB IV SCH ×2 (02:17→09:12)
[2016-10-17 06:28] LABS: MANUAL DIFF NEEDED? NO
[2016-10-17 06:50] LABS: BASO% 0.4 % (0.0-0.8); EOS# 0.23 X1000 (0.0-0.7); EOS% 2.1 % (0.0-10.0); HEMATOCRIT 27.9 % (37.0-47.0); IMM GRAN# 0.09 X1000 (0.0-0.04); IMM GRAN% 0.8 % (0.0-0.5); LYMPH# 1.43 X1000 (1.2-3.4); LYMPH% 12.8 % (20.5-51.1); MCH 29.1 PG (27-31); MCHC 32.3 g/dL (33-37); MCV 90.3 FL (81-99); MONO# 1.15 X1000 (0.11-0.59); MONO% 10.3 % (1.7-9.3); MPV 10.1 FL (7.4-10.4); NEUT% 73.6 % (42.2-75.2); PLT 471 X1000 (130-400); RBC 3.09 XMIL (4.2-5.4)
[2016-10-17 07:21] LABS: ALBUMIN 2.3 g/dL (3.5-5.0); CALCIUM 7.8 mg/dL (8.8-10.2); POTASSIUM 3.5 mmol/L (3.5-5.1)
[2016-10-17 07:55] VITALS: BP 169/68
[2016-10-17] MEDS ORDERED: LASIX PO SCH (09:00)
[2016-10-17] MEDS: SYNTHROID PO SCH (09:11)
[2016-10-17] MEDS: COREG PO SCH (09:11)
[2016-10-17] MEDS: APRESOLINE PO SCH (09:11)
[2016-10-17] MEDS: PRINIVIL PO SCH (09:12)
[2016-10-17] MEDS: HEPARIN SUBQ SCH (09:12)
== END 2016-10-17 10:53 ==
LOC: ED 15:54 → 3N 21:45 → SUATTDRO 21:45
PROVIDERS: ATTEND Internal Medicine

== ENCOUNTER 2019-07-25 05:49 | Inpatient (IN) ==
--- NOTE | 2019-07-19 08:10 | EKG Report ---
Test Performed on : 07/19/2019 08:00:01 AM Test Reason : PAT Blood Pressure : / mmHG Vent. Rate : 063 BPM Atrial Rate : 063 BPM P-R Int : 172 ms QRS Dur : 088 ms QT Int : 394 ms P-R-T Axes : 080 -26 068 degrees QTc Int : 403 ms Normal sinus rhythm. Minimal voltage criteria for LVH, may be normal variant Nonspecific ST and T wave abnormality Abnormal ECG When compared with ECG of 16-OCT-2016 13:19, Vent. rate has decreased BY 35 BPM Criteria for Inferior infarct are no longer present Nonspecific T wave abnormality no longer evident in Inferior leads T wave amplitude has increased in Anterior leads Inverted T waves have replaced nonspecific T wave abnormality in Lateral leads Confirmed by Oscar Stewart MD ([id number]) on 07/19/2019 7:36:22 PM
[2019-07-19 08:31] LABS: URINE SOURCE CLEAN CATCH
[2019-07-19 08:46] LABS: BASO# 0.05 X1000 (0.0-0.2); BASO% 0.6 % (0.0-0.8); EOS# 0.16 X1000 (0.0-0.7); HEMATOCRIT 31.8 % (37.0-47.0); HEMOGLOBIN 10.4 g/dL (12.0-16.0); LYMPH# 1.53 X1000 (1.2-3.4); LYMPH% 19.4 % (20.5-51.1); MCH 29.4 PG (27-31); MCHC 32.7 g/dL (33-37); MCV 89.8 FL (81-99); MONO# 1.14 X1000 (0.11-0.59); MONO% 14.5 % (1.7-9.3); MPV 8.4 FL (7.4-10.4); NEUT# 4.99 X1000 (1.4-6.5); NEUT% 63.5 % (42.2-75.2); PLT 400 X1000 (130-400); RBC 3.54 XMIL (4.2-5.4); RDW 12.6 % (11.5-14.5); WBC 7.87 X1000 (4.8-10.8)
[2019-07-19 09:03] LABS: BILIRUBIN URINE NEGATIVE (NEGATIVE); BLOOD URINE NEGATIVE (NEGATIVE); COLOR YELLOW; GLUCOSE URINE NEGATIVE (NEGATIVE); INR 1.02; KETONE URINE NEGATIVE (NEGATIVE); LEUKOCYTES URINE NEGATIVE (NEGATIVE); NITRITE URINE NEGATIVE (NEGATIVE); PH URINE 6.5; PROTEIN URINE NEGATIVE (NEGATIVE); PROTIME 13.5 Seconds (11.0-16.0); SP GRAVITY URINE 1.008; TURBIDITY URINE HAZY (CLEAR); UROBILINOGEN URINE NORMAL (NORMAL)
[2019-07-19 09:05] LABS: UR EPITHELIAL CELLS >10 /HPF (<10); URINE BACTERIA 2+ /HPF; URINE RBC <10 /HPF (<10); URINE WBC <10 /HPF (<10)
[2019-07-19 09:07] LABS: ALBUMIN 4.1 g/dL (3.5-5.0); CALCIUM 9.4 mg/dL (8.8-10.2); POTASSIUM 4.2 mmol/L (3.5-5.1)
[2019-07-19 12:35] LABS: HEMOGLOBIN A1C 5.6 % (4.8-6.0)
[2019-07-25] MEDS ORDERED: COLACE ONE (06:30)
[2019-07-25] MEDS ORDERED: REGLAN ONE (06:30)
[2019-07-25] MEDS ORDERED: PEPCID ONE (06:30)
[2019-07-25] MEDS ORDERED: KEFZOL 1 GM/D5W 1 GM/50 ML IVPB ONE (06:31)
[2019-07-25] MEDS ORDERED: LYRICA ONE (06:31)
[2019-07-25] MEDS ORDERED: CELEBREX ONE (06:31)
[2019-07-25] MEDS ORDERED: LR 1,000 ML ONE (06:31)
[2019-07-25] MEDS ORDERED: TORADOL ONE (06:32)
[2019-07-25] MEDS ORDERED: DURAMORPH ONE (06:32)
[2019-07-25] MEDS ORDERED: MARCAINE 0.25% PF ONE (06:32)
[2019-07-25] MEDS ORDERED: EXPAREL 1.3% ONE (06:33)
[2019-07-25] MEDS ORDERED: CYKLOKAPRON 1,000 MG/NS 1,000 MG/100 ML IVPB ONE (06:33)
[2019-07-25] MEDS ORDERED: NEOSPORIN G.U. IRRIGANT ONE (06:33)
[2019-07-25] MEDS ORDERED: SODIUM CHLORIDE 0.9% ONE (06:33)
[2019-07-25] MEDS ORDERED: DIPRIVAN 1% ONE ×2 (07:05→07:06)
[2019-07-25] MEDS ORDERED: EPHEDRINE ONE (07:46)
[2019-07-25] MEDS ORDERED: DECADRON ONE (08:38)
[2019-07-25] MEDS ORDERED: OFIRMEV 1000 MG/ISOTONIC SOLN 1,000 MG/100 ML BOTTLE ONE (08:38)
[2019-07-25] MEDS ORDERED: NS 1,000 ML ONE (09:31)
[2019-07-25 09:34] LABS: URINE SOURCE CATH
--- NOTE | 2019-07-25 09:42 | OPERATIVE NOTE ---
PROCEDURE DATE: 07/25/2019 PREOPERATIVE DIAGNOSIS: Degenerative joint disease left hip. POSTOPERATIVE DIAGNOSIS: Degenerative joint disease left hip. PROCEDURE PERFORMED: Left total hip replacement anterior. SURGEON: John Treviño MD. STATION INSPECTOR: MICHAEL Sykes. Mr. Segovia was necessary for proper retraction and manipulation during the case. ANESTHESIA: Spinal. COMPLICATION: None. PROCEDURE IN DETAIL: 83-year-old female presents for surgical left hip replacement. Risks, benefits, and no guarantees were discussed and she is willing to proceed. She was taken to the operating room and satisfactory anesthesia obtained. The left hip was prepped and draped in the usual sterile fashion. A time-out was taken to confirm operative site, procedure, and patient. After prep and drape and positioning on the [place] table, an anterior approach to the left hip was undertaken with an incision starting 1 cm distal and lateral to the anterior superior iliac spine. This was carried out 10 cm over the tensor fascia [place]. Dissection was carried down through the tensor and blunt dissection along the inner membrane of the tensor undertaken down the anterior hip capsule. Cobra retractors were placed over the superior and inferior aspect of the femoral neck. Femoral neck osteotomy was made after opening the capsule roughly 8 mm above the lesser trochanter. The femoral head was removed. A small Cobra retractor was carefully placed directly on anterior acetabular bone to protect the anterior neurovascular structures during reaming. Sequential reaming up to a 53 reamer was undertaken under fluoroscopic guidance. A DePuy 54 outer diameter Gription cup was then impacted in the acetabulum in roughly 15 degrees of anteversion and 45 degrees of abduction. This had secure press-fit fixation. An additional 25 length screw was placed in the cup for additional security. A 36 mm inner diameter polyethylene bearing was then impacted into the cup. The bearing cup interface and cup bone interface was checked and noted to be stable. Traction was released off the leg and the hip extended and externally rotated to facilitate broaching of the proximal femur. Sequential broaching was undertaken with a [employer]x [place] Actis broach up to a size 7 stem. A standard collar with a 1.5 neck length revealed good sikh of leg length and stability. The trial stem was removed and a standard neck Actis size 7 collared stem impacted in the proximal femur with secure axial and rotational stability. A 36 mm head ball with a 1.5 neck taper was impacted onto this and the hip reduced. Final range of motion was assessed with flexion of the hip and internal rotation with no posterior instability. The hip was extended to the floor and externally rotated 75 degrees without any anterior instability. The wound was irrigated with irrigant. Exparel was injected for pain management about the capsule and subcutaneous tissues. A Hemovac drain was placed. The fascia of the tensor was closed with a running V-Loc suture, the subcutaneous with 2-0 Vicryl and the skin with Prineo closure. Sterile dressings were applied. She was recovered from anesthesia and transferred to the recovery room in stable condition. No intraoperative complications were noted. Instrument count and sponge count was correct at the time of closure. cc: Gino Treviño MD
[2019-07-25 09:45] LABS: BILIRUBIN URINE NEGATIVE (NEGATIVE); BLOOD URINE NEGATIVE (NEGATIVE); COLOR STRAW; GLUCOSE URINE NEGATIVE (NEGATIVE); KETONE URINE NEGATIVE (NEGATIVE); LEUKOCYTES URINE NEGATIVE (NEGATIVE); NITRITE URINE NEGATIVE (NEGATIVE); PROTEIN URINE NEGATIVE (NEGATIVE); SP GRAVITY URINE 1.005; TURBIDITY URINE CLEAR (CLEAR); UROBILINOGEN URINE NORMAL (NORMAL)
[2019-07-25 09:47] LABS: UR EPITHELIAL CELLS <10 /HPF (<10); URINE BACTERIA NEGATIVE /HPF; URINE RBC <10 /HPF (<10); URINE WBC <10 /HPF (<10)
[2019-07-25] MEDS ORDERED: OXY IR PO PRN ×2 (10:30)
[2019-07-25] MEDS ORDERED: MORPHINE IV PRN ×3 (10:30)
[2019-07-25] MEDS ORDERED: ZOFRAN ODT PO PRN (10:30)
[2019-07-25] MEDS ORDERED: CYKLOKAPRON 1,000 MG in NS 100 ML IV ONE (13:45)
[2019-07-25] MEDS: NS 1,000 ML IV SCH ×2 (14:30→21:32)
--- NOTE | 2019-07-25 16:11 | ORTHOPAEDICS PROGRESS NOTE ---
DATE: 07/25/2019 SUBJECTIVE DATA: Ms. Martinez was seen postop day 0 of her left total hip arthroplasty. She reports she is doing well. She states her pain is a 2/10 at this time. She denies pain about the hip. She denies nausea or vomiting. OBJECTIVE DATA: Her bandages are clean and dry to the left hip. She can flex her quadriceps muscles without difficulty. There is good sensation. There is good pedal pulses. Vital signs are stable. ASSESSMENT: Degenerative joint disease left hip with left total hip arthroplasty. PLAN: We plan to keep Ms. Martinez overnight. We will check on her in the morning and see if she is ready for discharge. Dictated by MICHAEL Sykes for Gino Treviño MD cc: MICHAEL Sykes MD
[2019-07-25] MEDS: KEFZOL 1 GM/D5W 1 GM/50 ML IVPB IV SCH (16:31)
[2019-07-25] MEDS: ULTRAM PO SCH ×2 (16:32→21:32)
[2019-07-25] MEDS: TYLENOL PO SCH ×2 (16:32→21:31)
[2019-07-25] MEDS: APRESOLINE PO SCH (19:19)
[2019-07-25] MEDS: PERIDEX MT SCH (21:18)
[2019-07-25] MEDS: COLACE PO SCH (21:30)
[2019-07-25] MEDS: CELEBREX PO SCH (21:30)
[2019-07-25] MEDS: TENORMIN PO SCH (21:31)
[2019-07-25] MEDS: PRINIVIL PO SCH (21:31)
[2019-07-25] MEDS: CATAPRES PO SCH (21:31)
[2019-07-25] MEDS: NORVASC PO SCH (21:31)
[2019-07-26] MEDS: KEFZOL 1 GM/D5W 1 GM/50 ML IVPB IV SCH
[2019-07-26] MEDS: SYSTANE EYE DROPS BOTH EYES SCH ×3 (02:59→21:57)
[2019-07-26] MEDS: TYLENOL PO SCH ×4 (03:49→21:49)
[2019-07-26] MEDS: ULTRAM PO SCH ×4 (03:49→21:49)
[2019-07-26] MEDS: NS 1,000 ML IV SCH (05:21)
[2019-07-26] MEDS: APRESOLINE PO SCH ×3 (06:42→18:54)
[2019-07-26] MEDS: SYNTHROID PO SCH (06:42)
[2019-07-26 07:14] LABS: HEMATOCRIT 25.1 % (37.0-47.0); HEMOGLOBIN 8.3 g/dL (12.0-16.0)
[2019-07-26 07:26] LABS: CALCIUM 8.3 mg/dL (8.8-10.2); CREATININE 1.2 mg/dL (0.5-0.9)
[2019-07-26] MEDS: PERIDEX MT SCH ×2 (09:06→21:50)
[2019-07-26] MEDS: CELEBREX PO SCH ×2 (09:06→21:48)
[2019-07-26] MEDS: COLACE PO SCH ×2 (09:07→21:49)
[2019-07-26] MEDS: PEPCID PO SCH (09:07)
[2019-07-26] MEDS: CATAPRES PO SCH ×2 (09:07→21:49)
[2019-07-26] MEDS: PRINIVIL PO SCH ×2 (09:07→21:49)
[2019-07-26] MEDS: ASPIRIN PO SCH (09:07)
[2019-07-26] MEDS: TENORMIN PO SCH ×2 (09:07→21:50)
[2019-07-26] MEDS: LASIX PO SCH (09:07)
--- NOTE | 2019-07-26 09:25 | ORTHOPAEDICS PROGRESS NOTE ---
DATE: 07/26/2019 SUBJECTIVE: Ms. Martinez is seen status post total hip replacement. She is afebrile with stable vital signs. Her bandage is clean and dry. Hematocrit is down to 25, but she started at 30 so is slightly anemic preop. Blood pressure is stable. We will plan on mobilizing her today. She is on an inpatient status due to age and comorbidities. We will plan discharge home later this week with home therapy if possible versus rehab placement. cc: Gino Treviño MD
[2019-07-26] MEDS: ZOFRAN IV PRN (14:07)
[2019-07-26] MEDS: NORVASC PO SCH (21:50)
[2019-07-27] MEDS: TYLENOL PO SCH ×4 (03:37→22:15)
[2019-07-27] MEDS: ULTRAM PO SCH ×4 (03:38→22:19)
[2019-07-27] MEDS: ZOFRAN IV PRN ×2 (03:46→09:47)
[2019-07-27] MEDS: APRESOLINE PO SCH ×3 (06:25→18:55)
[2019-07-27] MEDS: SYNTHROID PO SCH (06:25)
[2019-07-27 07:10] LABS: HEMATOCRIT 24.4 % (37.0-47.0); HEMOGLOBIN 8.2 g/dL (12.0-16.0)
[2019-07-27] MEDS: CELEBREX PO SCH ×2 (08:34→22:13)
[2019-07-27] MEDS: CATAPRES PO SCH ×2 (08:34→22:14)
[2019-07-27] MEDS: PERIDEX MT SCH ×3 (08:34→22:15)
[2019-07-27] MEDS: LASIX PO SCH (08:34)
[2019-07-27] MEDS: ASPIRIN PO SCH (08:35)
[2019-07-27] MEDS: COLACE PO SCH ×2 (08:35→22:14)
[2019-07-27] MEDS: TENORMIN PO SCH ×2 (08:35→22:14)
[2019-07-27] MEDS: PEPCID PO SCH (08:35)
[2019-07-27] MEDS: PRINIVIL PO SCH ×2 (08:35→22:15)
[2019-07-27] MEDS ORDERED: COMPAZINE IV PRN (09:16)
--- NOTE | 2019-07-27 09:52 | ORTHOPAEDICS PROGRESS NOTE ---
DATE: 07/27/2019 SUBJECTIVE DATA: Ms. Martinez is seen postop day 2 of her left total hip arthroplasty. She reports she has had some nausea and vomiting. She also states she feels very weak and has been unable to have a bowel movement. OBJECTIVE DATA: Abdomen: Soft and nontender. Extremities: There is good sensation left lower extremity. There are good pedal pulses. Her bandages are clean and dry. She is slightly pale at this time. Vital Signs: Have been within normal limits. ASSESSMENT: Anemia, constipation, nausea, vomiting, degenerative joint disease left hip with left total hip arthroplasty. PLAN: We will plan to go ahead and give her 1 unit of packed red blood cells. We will go ahead and consult the hospitalist. I have ordered abdominal films to check for bowel obstruction. I also gave her Compazine to help with her nausea. We will let the hospitalist evaluate her, and then check back on her in the morning and see how she is doing. Dictated by MICHAEL Sykes for Gino Treviño MD cc: MICHAEL Sykes MD
[2019-07-27] MEDS: NS 500 ML IV SCH (10:45)
[2019-07-27] MEDS: MIRALAX PO SCH ×2 (10:45→22:12)
--- NOTE | 2019-07-27 11:22 | Diag Imaging Result Doc PS360 ---
EXAM: ABDOMEN FLAT/UPRIGHT 07/27/2019 HISTORY: constipation TECHNIQUE: Flat and upright abdomen COMMENT: There is a large amount of stool in the rectosigmoid colon. There is stool throughout the descending colon. The stomach and small bowel are not distended. There is no evidence of organomegaly or mass. IMPRESSION: Constipation. Electronically signed by Isaac Wallis 07/27/2019 11:19 AM
[2019-07-27 17:17] LABS: HEMATOCRIT 28.4 % (37.0-47.0); HEMOGLOBIN 9.6 g/dL (12.0-16.0)
--- NOTE | 2019-07-27 17:44 | CONSULTATION ---
DATE OF CONSULTATION: 07/27/2019 REASON FOR CONSULTATION: This is an 83-year-old referred from Dr. Murphy for degenerative joint disease of the left hip, severe left hip pain. She has had pain for several years. Denies any known injury, and pain continued to progress. She has stiffness in her knees but also pain in her thighs anteriorly. She has undergone total hip arthroplasty on the and did have some nausea today, and there were some reports of constipation. PAST MEDICAL HISTORY: 1. Anemia. 2. Hypertension. PAST SURGICAL HISTORY: Apparently she has had small bowel removal because of ischemia done by Dr. Doctor Fuentes in the past. She underwent a left total hip arthroplasty on 07/25/2019. SOCIAL HISTORY: Negative for alcohol or tobacco or illicit drugs. HOME MEDICATIONS: She was on Afluria 60 (and these may be injections), amlodipine 5 mg a day, aspirin 81 mg a day, atenolol 50 mg a day, clonidine 0.1 mg (I am not sure how often she takes that), furosemide 20 mg a day, hydralazine 10 mg, levothyroxine 75 mcg daily, lisinopril 20 mg a day, and Mobic 15 mg daily. PHYSICAL EXAMINATION: General: She is comfortable, awake. No nausea at this time. Her daughter is at the bedside. Vital Signs: Temperature 98.4, pulse 60, respirations 18. Last several blood pressures: 153/57, 149/72, 129/67, 165/56. HEENT: Pupils are equal and round. Neck: No distended neck veins. Neurologic: She is alert and oriented x3. Lungs: Clear in all lung hale. Cardiovascular: Regular rate without murmur or S3. Abdomen: Soft. Skin: Warm and dry. Urine output: Yesterday it was 2300 mL. Today it is about 2500 mL. REVIEW OF LABS: Labs from today: Hematocrit 24, hemoglobin 8.2, which is stable from yesterday. Her renal function looks good. Creatinine is 1.2. Her sodium was a little low at 126, potassium 4.0, chloride 92, BUN 23. ORDERS: She is on Norvasc 5 mg at bedtime. She gets propylene glycol eyedrops for her dry eyes, Oxy IR 10 mg every 3 hours p.r.n. pain, aspirin 325 mg a day, Tenormin 75 mg p.o. b.i.d., Celebrex 200 mg b.i.d., clonidine 0.1 mg b.i.d., docusate sodium 100 mg p.o. b.i.d., Pepcid 20 mg daily, Lasix 20 mg daily, Apresoline 20 mg p.o. t.i.d., Synthroid 75 mcg daily, lisinopril 20 mg p.o. b.i.d., MiraLAX 17 g p.o. b.i.d. She got some Compazine, and she can have that t.i.d. p.r.n. She is on Ultram 100 mg p.o. every 6 hours. ASSESSMENT AND PLAN: 1. Nausea which is appears to have improved. 2. She does have some mild hyponatremia. We will check electrolytes again. I am going to check a T4 and TSH in the morning as well. 3. She has had some history of constipation. She is on a stool softener. She reports that she is comfortable at the present time. cc: Sudeep Andrade MD
[2019-07-27] MEDS: NORVASC PO SCH (22:14)
[2019-07-27] MEDS: SYSTANE EYE DROPS BOTH EYES SCH (22:15)
[2019-07-28] MEDS: TYLENOL PO SCH ×2 (04:19→08:31)
[2019-07-28] MEDS: ULTRAM PO SCH ×2 (04:20→08:44)
[2019-07-28] MEDS: APRESOLINE PO SCH ×2 (06:15→12:56)
[2019-07-28] MEDS: SYNTHROID PO SCH (06:15)
[2019-07-28] MEDS: NS 500 ML IV SCH (07:21)
[2019-07-28 07:22] LABS: HEMATOCRIT 30.6 % (37.0-47.0); HEMOGLOBIN 10.5 g/dL (12.0-16.0)
[2019-07-28 07:42] LABS: CALCIUM 8.8 mg/dL (8.8-10.2); CREATININE 0.9 mg/dL (0.5-0.9); MAGNESIUM 1.7 mg/dL (1.5-2.7); POTASSIUM 4.9 mmol/L (3.5-5.1)
[2019-07-28 08:14] LABS: FREE T4 1.45 ng/dL (0.93-1.70)
[2019-07-28 08:16] LABS: TSH 5.55 uIUmL (0.27-4.20)
[2019-07-28] MEDS: PERIDEX MT SCH (08:28)
[2019-07-28] MEDS: MIRALAX PO SCH (08:28)
[2019-07-28] MEDS ORDERED: DULCOLAX PO ONE (08:28)
[2019-07-28] MEDS: CELEBREX PO SCH (08:29)
[2019-07-28] MEDS: PEPCID PO SCH (08:29)
[2019-07-28] MEDS: PRINIVIL PO SCH (08:30)
[2019-07-28] MEDS: COLACE PO SCH (08:30)
[2019-07-28] MEDS: ASPIRIN PO SCH (08:30)
[2019-07-28] MEDS: TENORMIN PO SCH (08:30)
[2019-07-28] MEDS: CATAPRES PO SCH (08:31)
[2019-07-28] MEDS: LASIX PO SCH (08:31)
--- NOTE | 2019-07-28 09:28 | DISCHARGE SUMMARY ---
ADMISSION DATE: 07/25/2019 DISCHARGE DATE: 07/28/2019 ADMITTING DIAGNOSIS: Degenerative joint disease of the left hip. DISCHARGE DIAGNOSIS: Degenerative joint disease of the left hip as well as anemia, nausea, vomiting, weakness. PAST MEDICAL HISTORY: Includes anemia and high blood pressure, as well as hypothyroidism. HOSPITAL COURSE: Ms. Martinez was taken to the operating room on 07/25/2019, where a left total hip arthroplasty was performed. She tolerated the procedure well. She was transferred to the recovery unit. She did well there and was transferred to the surgical floor. She started to develop some anemia and nausea and vomiting that throughout the night. The next morning we saw the patient, and started giving her some medications to treat her nausea, vomiting. We also gave her 1 unit of packed red blood cells which did make her hemoglobin and hematocrit rise. She stated she did feel better from getting the blood. She still has some nausea today on 07/28/2019. We have recommended rehab placement for her. She has had good sensation to the left lower extremity. The bandages have been clean and dry. There is negative Homans sign. She has been able to flex her quadriceps muscles without difficulty. She did have some constipation. She has not had a bowel movement yet. We did an abdominal x-ray and it did show some constipation, but no evidence of ileus at this time. We will go ahead and give her some MiraLAX as well as Dulcolax. We will give her an enema if needed. She was felt ready to be discharged on 07/28/2019 as long as it is okay with the hospitalist service. ALLERGIES: Include meloxicam. PRINCIPAL PROCEDURE: Left total hip arthroplasty. DISCHARGE MEDICATIONS: 1. [place] 10 mg for pain. 2. Aspirin 325 mg for DVT prophylaxis. 3. Doxycycline for infection prevention. 4. I have also written her Phenergan for nausea and vomiting. DISPOSITION: She is to be discharged to inpatient rehab. FOLLOWUP: She is to follow up with Dr. Treviño whenever she gets out of rehab. They can remove her karla in roughly 10 days. DISCHARGE INSTRUCTIONS: Discharge with inpatient rehab at this time and to follow other procedures and protocols. She can be full weightbearing on that leg. Dictated by MICHAEL Sykes for Gino Treviño MD cc: MICHAEL Sykes MD Allen J. Schmidt, MD
--- NOTE | 2019-07-28 09:36 | Diag Imaging Result Doc PS360 ---
CHEST-PORTABLE - 07/28/2019 INDICATION: for rehab placement COMPARISON: 10/16/2016 FINDINGS: The lungs are normally expanded and clear. Heart size and mediastinal contours are normal. No pneumothorax or pleural effusion. IMPRESSION: Negative exam. Electronically signed by Luis Knight 07/28/2019 9:34 AM
[2019-07-28 12:29] VITALS: BP 141/67
--- NOTE | 2019-07-28 14:04 | PROGRESS NOTE ---
DATE: 07/28/2019 SUBJECTIVE: Ms. Martinez has done well and afebrile. No nausea. Breathing comfortably. Tolerating physical therapy. I think they are in the process of trying to get her to rehab. So I think she is okay to go to rehab. Reviewed her orders and we will discharge her. cc: Sudeep Andrade MD
== END 2019-07-28 14:19 | DRG 470 ==
LOC: SURHOLD 05:49 → EDSTATUS 08:00 → 4N 08:28
PROVIDERS: ADMIT Emergency Medicine; ATTEND Orthopaedic Surgery Adult Reconstructive Orthopaedic Surgery